=== PATIENT | male | born 1935 | race Caucasian/White ===

== ENCOUNTER 2016-06-30 07:59 | Day surgery (SDC) | payer MEDICARE, BC ==
[2016-06-29 08:37] VITALS: BMI 29.0
[~2016-06-30 07:59] MED LIST: DEXAMETHASONE SOD PHOSPHATE 10 MG/ML 1 ML VIAL IV ONE; HEPARIN SODIUM,PORCINE 5,000 UNIT/ML 1 ML VIAL SQ ONE; HYDROmorphone 1 MG/ML 1 ML SYRINGE IVP PRN; LACTATED RINGERS 1,000 ML IV SCH; ONDANSETRON 4 MG/2 ML VIAL IVP ONE; ceFAZolin 2 GM in SODIUM CHLORIDE 0.9% 100 ML IVPB ONE
[2016-06-30] MEDS ORDERED: LIDOCAINE 1% 20 ML VIAL (10MG/ML) FOR IV START INTRADERMA ONE (08:51)
--- NOTE | 2016-06-30 09:10 | P.GSHP ---
History of Present Illness H&P Date: 06/30/16 Chief Complaint: Recurrent right internal hernia This 80-year-old male who presents today for repair of recurrent right internal hernia. The patient developed a mass is right groin approximately 1 month ago. He states it happened after heavy lifting. Past Medical History Past Medical History: Cancer, Eye Disorder, Hearing Disorder / Deafness, Hyperlipidemia, Thyroid Disorder Additional Past Medical History / Comment(s): GLAUCOMA,PROSTATE CANCER History of Any Multi-Drug Resistant Organisms: None Reported Past Surgical History: Hernia Repair, Tonsillectomy Additional Past Surgical History / Comment(s): CYSTOSCOPY,LEFT WRIST Past Anesthesia/Blood Transfusion Reactions: No Reported Reaction Smoking Status: Former smoker Past Alcohol Use History: Rare Additional Past Alcohol Use History / Comment(s): quit smoking early Past Drug Use History: None Reported - Past Family History Mother Family Medical History: No Reported History Medications and Allergies Home Medications Medication Instructions Recorded Confirmed Type Ascorbic Acid [Vitamin C] 500 mg PO DAILY 12/20/14 06/29/16 History Atorvastatin [Lipitor] 40 mg PO HS 12/20/14 06/29/16 History Calcium Carbonate/Vitamin D3 2 each PO DAILY 12/20/14 06/29/16 History [Calcium 600 + Vit D Tablet] Cyanocobalamin [Vitamin B-12] 500 mcg PO DAILY 12/20/14 06/29/16 History Glucosamine HCl/Chondr Hoover A Na 1 each PO DAILY 12/20/14 06/29/16 History [Osteo Bi-Flex Caplet] Levothyroxine Sodium [Synthroid] 75 mcg PO DAILY 12/20/14 06/29/16 History Vitamin E (Dl,Tocopheryl Acet) 400 unit PO DAILY 12/20/14 06/29/16 History [Vitamin E] Bimatoprost [Lumigan .01% Ophth 1 drop BOTH EYES DAILY 06/29/16 06/29/16 History Soln] Brimocom 1 drop BOTH EYES BID 06/29/16 06/30/16 History Allergies Allergy/AdvReac Type Severity Reaction Status Date / Time No Known Allergies Allergy Verified 06/29/16 08:31 Surgical - Exam Vital Signs Temp Pulse Resp BP Pulse Ox 97.8 F 51 L 20 124/60 95 06/30/16 08:33 06/30/16 08:33 06/30/16 08:33 06/30/16 08:33 06/30/16 08:33 - General well developed, no distress - Eyes PERRL - ENT normal pinna - Neck no masses - Respiratory normal expansion - Cardiovascular Rhythm: regular - Abdomen Abdomen: soft, non tender Hernia: inguinal (Recurrent right inguinal hernia) Assessment and Plan Plan: Recurrent right inguinal hernia. We'll perform repair.
[2016-06-30] MEDS ORDERED: fentaNYL (PF) 50 MCG/ML 2 ML AMP ONE (09:37)
[2016-06-30] MEDS ORDERED: MIDAZOLAM 2 MG/2 ML VIAL ONE (09:37)
[2016-06-30] MEDS ORDERED: NEOSTIGMINE 1 MG/ML 10 ML VIAL ONE (09:37)
[2016-06-30] MEDS ORDERED: PROPOFOL 10 MG/ML 20 ML VIAL IV ONE (09:37)
[2016-06-30] MEDS ORDERED: SUCCINYLCHOLINE CHLORIDE 100 MG/5 ML SYR IV ONE (09:37)
[2016-06-30] MEDS ORDERED: LIDOCAINE 1% INJ 10MG/ML (20 ML MDV) ONE (09:37)
[2016-06-30] MEDS ORDERED: ROCURONIUM BROMIDE 10 MG/ML 10 ML VIAL IV ONE (09:37)
[2016-06-30] MEDS ORDERED: ePHEDrine 50 MG/ML 1 ML AMP ONE (09:37)
[2016-06-30] MEDS ORDERED: GLYCOPYRROLATE 0.2 MG/ML 2 ML VIAL ONE (09:37)
[2016-06-30] MEDS ORDERED: BUPIVACAIN-EPI 0.25%-1:200,000 30 ML VIAL SQ ONE (10:17)
--- NOTE | 2016-06-30 10:57 | P.OP ---
Date of Procedure: 06/30/16 Preoperative Diagnosis: Recurrent right inguinal hernia Postoperative Diagnosis: Recurrent right inguinal hernia Procedure(s) Performed: Laparoscopic robotic system repair of recurrent right inguinal hernia Anesthesia: HITESH Surgeon: Isaac Garcia Pathology: none sent Condition: stable Disposition: PACU Description of Procedure: The patient was placed the operative table in the supine position. He received general anesthesia. His abdomen was prepped and draped in the usual fashion. The patient had a previous incision scar at his right groin. The skin was anesthetized the trocar sites and then a skin incision was made in the infraumbilical area. The fascia was grasped with a Abraham clamp and then the Veress needles placed into the peritoneal cavity. Position of the Veress needle was confirmed with a positive drop test and then the abdomen insufflated. Next a 5 mm trochars placed. Cavity. The laparoscope was placed the pleural cavity. And then a 8 mm robotic trocar was placed in the right and left lateral position. The patient was then docked to the robot. The right inguinal canal was examined. There appeared to be new right direct hernia. At this point the peritoneum over the hernia was incised and cut. Using blunt dissection the hernia sac was dissected free. The Progrip mesh was then placed into the floor of the inguinal canal. The mesh was then unrolled and then the peritoneum was closed with 20 the lock suture. The patient was then undocked the robot. The needles were withdrawn. The fascia ohmmeter trocar site was closed with 0 Ethibond suture. Skin was closed interrupted 3-0 Monocryl suture. Dermabond dressings was applied. Patient top procedure well and sent to recovery in stable condition
[2016-06-30 11:11] VITALS: TEMP 96.9
[2016-06-30 13:04] VITALS: RESP 18
[2016-06-30 14:52] VITALS: BP 132/72; PULSE 60
== END 2016-06-30 14:15 | disposition home or self-care (01) ==
LOC: OR 07:59
PROVIDERS: ATTEND Surgery
DX: K40.91 Unilateral inguinal hernia, without obstruction or gangrene, recurrent (principal); E78.5 Hyperlipidemia, unspecified; E07.9 Disorder of thyroid, unspecified; H40.9 Unspecified glaucoma; Z79.899 Other long term (current) drug therapy; Z87.891 Personal history of nicotine dependence
CPT/HCPCS: 49651; C1781; J2250; J1644; J1100; J2710; J0690; J2405; J2001; J3010; J0330; J2704

== ENCOUNTER 2019-05-07 21:50 | Inpatient (IN) | payer MEDICARE, BC ==
[2019-05-07] MEDS ORDERED: DIPH,PERTUS(ACELL)TETVAC-LF 0.5 ML VIAL IM ONE (21:54)
[2019-05-07] MEDS ORDERED: SODIUM CHLORIDE 0.9% 500 ML 500 ML IV ONE (21:59)
--- NOTE | 2019-05-07 21:59 | ED ---
Trauma HPI - General Stated Complaint: Fall Time Seen by Provider: 05/07/19 21:54 Source: patient, EMS Mode of arrival: EMS Limitations: no limitations - History of Present Illness Initial Comments: Gio is an 83-year-old gentleman with extensive past medical history most significant for pulmonary embolisms for which she is on L Dank. Patient reports that he's been sick all day today not feeling well nausea, vomiting. He reports that this evening he stood up, became lightheaded and passed out. Patient fell forward, he was unconscious and did not recent sulfa the fall. He landed directly on his face. He woke up bleeding from his lip. called EMS. Upon their arrival patient was awake alert and oriented that someone sleepy and complaining of not feeling well. She denies any chest pain or palpitations or shortness of breath. Patient declined any pain meds prior to transfer to the emergency department however was given a dose of Toradol and Zofran in route. Patient has no history of pancreatitis. No history of gallstones. He is not an alcohol drinker. He is not on any diabetic medications. She denies any new medication the past 2 months. - Related Data Home Medications Medication Instructions Recorded Confirmed Ascorbic Acid [Vitamin C] 500 mg PO DAILY 12/20/14 05/07/19 Atorvastatin [Lipitor] 40 mg PO HS 12/20/14 05/07/19 Calcium Carbonate/Vitamin D3 2 tab PO DAILY 12/20/14 05/07/19 [Calcium 600 + Vit D Tablet] Glucosamine/Chondr Hoover A Sod [Osteo 2 tab PO DAILY 12/20/14 05/07/19 Bi-Flex Caplet] Levothyroxine Sodium [Synthroid] 75 mcg PO DAILY 12/20/14 05/07/19 Apixaban [Eliquis] 5 mg PO BID 05/07/19 05/07/19 Bimatoprost [Lumigan .01% Ophth 1 drop BOTH EYES BID 05/07/19 05/07/19 Soln] Dorzolamide 2% [Trusopt 2%] 1 drops BOTH EYES BID 05/07/19 05/07/19 Krill Oil 500 mg PO DAILY 05/07/19 05/07/19 Latanoprost [Xalatan 0.005%] 1 drop BOTH EYES HS 05/07/19 05/07/19 Timolol [Betimol 0.5% Ophth Soln] 1 drop BOTH EYES BID 05/07/19 05/07/19 Vit A/Vit C/Vit E/Zinc/Copper 1 cap PO DAILY 05/07/19 05/07/19 [Vision Formula Softgel] Vitamin B Complex 1 cap PO DAILY 05/07/19 05/07/19 Allergies Allergy/AdvReac Type Severity Reaction Status Date / Time No Known Allergies Allergy Verified 05/07/19 22:39 Review of Systems ROS Statement: Those systems with pertinent positive or pertinent negative responses have been documented in the HPI. ROS Other: All systems not noted in ROS Statement are negative. Past Medical History Past Medical History: Cancer, Eye Disorder, Hearing Disorder / Deafness, Hyperlipidemia, Thyroid Disorder Additional Past Medical History / Comment(s): GLAUCOMA,PROSTATE CANCER History of Any Multi-Drug Resistant Organisms: None Reported Past Surgical History: Hernia Repair, Tonsillectomy Additional Past Surgical History / Comment(s): CYSTOSCOPY,LEFT WRIST Past Anesthesia/Blood Transfusion Reactions: No Reported Reaction Smoking Status: Former smoker Past Alcohol Use History: Rare Additional Past Alcohol Use History / Comment(s): quit smoking early Past Drug Use History: None Reported - Past Family History Mother Family Medical History: No Reported History General Exam - General Exam Comments Initial Comments: Physical Exam GENERAL: Patient is well-developed and well-nourished. HENT: Contusion of forehead Laceration of lower lip - through and through with bleeding controlled Laceration under the chin approximately 2 cm in length. EYES: Left pupil 3mm non-reactive Right pupil 3mm and reactve PULMONARY: Unlabored respirations. No audible rales rhonchi or wheezing was noted. CARDIOVASCULAR: RRR ABDOMEN: Soft and nontender with normal bowel sounds. SKIN: Skin is dry, pale Skin tear to left index finger over the PIP joint : Deferred NEUROLOGIC: Patient is alert and oriented x3. Moving all extremities spontaneously MUSCULOSKELETAL: Normal extremities with adequate strength and full range of motion. No lower ex tremity swelling or edema. No calf tenderness. PSYCHIATRIC: Normal psychiatric evaluation. Limitations: no limitations Course Vital Signs 05/07/19 21:53 Pulse Rate 96 Respiratory 20 Rate Blood Pressure 149/83 O2 Sat by Pulse 100 Oximetry Procedures - Laceration Laceration #1 Consent Obtained: verbal consent Indication: laceration Site: face Size (cm): 2 Description: irregular Depth: simple, single layer Anesthetic Used: lidocaine 1%, with epi Anesthesia Technique: local infiltration Pre-repair: wound explored, deep structures intact Type of Sutures: nylon Size of Sutures: 4-0 Number of Sutures: 3 Technique: simple, interrupted Patient Tolerated Procedure: well, no complications Laceration #2 Consent Obtained: verbal consent Indication: laceration Site: hand Size (cm): 3 Description: flap, irregular Depth: simple, single layer Pre-repair: wound explored Type of Sutures: other (Glue) Patient Tolerated Procedure: well, no complications Medical Decision Making - Medical Decision Making LEVEL 2 TRAUMA ACTIVATION - LOC, FALL, HEAD TRAUMA, ON ANTICOAGULANT Patient was seen and evaluated immediately upon arrival in the emergency department. ABCs are intact, secondary survey reveals head trauma, bruising about the right eye as well as bleeding from the lip. Oropharynx is intact there is no broken t eeth no airway obstruction. Labs and imaging were ordered Imaging revealed no acute traumatic injuries Labs did reveal acute pancreatitis with no elevated transaminitis, a CT of the abdomen was then obtained An additional IV fluids pain management ordered CT with no signs of pancreatic inflammation, no cysts or masses, no common bile dilatation or abnormality of the gallbladder Patient care was discussed with Dr. Adams who agrees the patient is medically cleared from a trauma standpoint and can be admitted to medicine for acute pancreatitis with dehydration and syncopal episode. Patient care was discussed patient's primary care physician Dr. Jj who agrees with plan for admission for acute pancreatitis of unknown etiology, dehydration, syncopal episode Patinet were updated and agreement with plan - Lab Data Result diagrams: 05/07/19 21:53 05/07/19 21:53 Lab Results 05/07/19 05/07/19 05/07/19 Range/Units 21:53 21:53 21:53 WBC 14.7 H (3.8-10.6) k/uL RBC 4.91 (4.30-5.90) m/uL Hgb 14.6 (13.0-17.5) gm/dL Hct 43.2 (39.0-53.0) % MCV 88.0 (80.0-100.0) fL MCH 29.6 (25.0-35.0) pg MCHC 33.7 (31.0-37.0) g/dL RDW 12.8 (11.5-15.5) % Plt Count 271 (150-450) k/uL Neutrophils % 84 % Lymphocytes % 13 % Monocytes % 2 % Eosinophils % 0 % Basophils % 0 % Neutrophils # 12.4 H (1.3-7.7) k/uL Lymphocytes # 1.9 (1.0-4.8) k/uL Monocytes # 0.3 (0-1.0) k/uL Eosinophils # 0.0 (0-0.7) k/uL Basophils # 0.0 (0-0.2) k/uL PT (9.0-12.0) sec INR (<1.2) APTT (22.0-30.0) sec Sodium 140 (137-145) mmol/L Potassium 4.5 (3.5-5.1) mmol/L Chloride 105 (98-107) mmol/L Carbon Dioxide 25 (22-30) mmol/L Anion Gap 10 mmol/L BUN 23 H (9-20) mg/dL Creatinine 0.89 (0.66-1.25) mg/dL Est GFR (CKD-EPI)AfAm >90 (>60 ml/min/1.73 sqM) Est GFR (CKD-EPI)NonAf 79 (>60 ml/min/1.73 sqM) Glucose 170 H (74-99) mg/dL POC Glucose (mg/dL) (75-99) mg/dL POC Glu Operator Receptionist ID Lactic Ac Sepsis Rflx Plasma Lactic Acid Waqas (0.7-2.0) mmol/L Calcium 9.9 (8.4-10.2) mg/dL Total Bilirubin 1.2 (0.2-1.3) mg/dL AST 37 (17-59) U/L ALT 42 (21-72) U/L Alkaline Phosphatase 56 (38-126) U/L Total Creatine Kinase 93 (55-170) U/L CK-MB (CK-2) 1.6 (0.0-2.4) ng/mL CK-MB (CK-2) Rel Index 1.7 Troponin I <0.012 (0.000-0.034) ng/mL Total Protein 6.9 (6.3-8.2) g/dL Albumin 4.5 (3.5-5.0) g/dL Amylase 4453 H* (30-110) U/L Lipase >66186 H (23-300) U/L Urine Color Urine Appearance (Clear) Urine pH (5.0-8.0) Ur Specific [place] (1.001-1.035) Urine Protein (Negative) Urine Glucose (UA) (Negative) Urine Ketones (Negative) Urine Blood (Negative) Urine Nitrite (Negative) Urine Bilirubin (Negative) Urine Urobilinogen (<2.0) mg/dL Ur Leukocyte Esterase (Negative) Urine Opiates Screen (NotDetected) Ur Oxycodone Screen (NotDetected) Urine Methadone Screen (NotDetected) Ur Propoxyphene Screen (NotDetected) Ur Barbiturates Screen (NotDetected) U Tricyclic Antidepress (NotDetected) Ur Phencyclidine Scrn (NotDetected) Ur Amphetamines Screen (NotDetected) U Methamphetamines Scrn (NotDetected) U Benzodiazepines Scrn (NotDetected) Urine Cocaine Screen (NotDetected) U Marijuana (THC) Screen (NotDetected) Serum Alcohol <10 mg/dL Blood Type Blood Type Confirm Blood Type Recheck Bld Type Recheck Status Antibody Screen Spec Expiration Date 05/07/19 05/07/19 05/07/19 Range/Units 21:53 21:53 21:56 WBC (3.8-10.6) k/uL RBC (4.30-5.90) m/uL Hgb (13.0-17.5) gm/dL Hct (39.0-53.0) % MCV (80.0-100.0) fL MCH (25.0-35.0) pg MCHC (31.0-37.0) g/dL RDW (11.5-15.5) % Plt Count (150-450) k/uL Neutrophils % % Lymphocytes % % Monocytes % % Eosinophils % % Basophils % % Neutrophils # (1.3-7.7) k/uL Lymphocytes # (1.0-4.8) k/uL Monocytes # (0-1.0) k/uL Eosinophils # (0-0.7) k/uL Basophils # (0-0.2) k/uL PT (9.0-12.0) sec INR (<1.2) APTT (22.0-30.0) sec Sodium (137-145) mmol/L Potassium (3.5-5.1) mmol/L Chloride (98-107) mmol/L Carbon Dioxide (22-30) mmol/L Anion Gap mmol/L BUN (9-20) mg/dL Creatinine (0.66-1.25) mg/dL Est GFR (CKD-EPI)AfAm (>60 ml/min/1.73 sqM) Est GFR (CKD-EPI)NonAf (>60 ml/min/1.73 sqM) Glucose (74-99) mg/dL POC Glucose (mg/dL) (75-99) mg/dL POC Glu Operator Receptionist ID Lactic Ac Sepsis Rflx Plasma Lactic Acid Waqas 2.3 H* (0.7-2.0) mmol/L Calcium (8.4-10.2) mg/dL Total Bilirubin (0.2-1.3) mg/dL AST (17-59) U/L ALT (21-72) U/L Alkaline Phosphatase (38-126) U/L Total Creatine Kinase (55-170) U/L CK-MB (CK-2) (0.0-2.4) ng/mL CK-MB (CK-2) Rel Index Troponin I (0.000-0.034) ng/mL Total Protein (6.3-8.2) g/dL Albumin (3.5-5.0) g/dL Amylase (30-110) U/L Lipase (23-300) U/L Urine Color Urine Appearance (Clear) Urine pH (5.0-8.0) Ur Specific [place] (1.001-1.035) Urine Protein (Negative) Urine Glucose (UA) (Negative) Urine Ketones (Negative) Urine Blood (Negative) Urine Nitrite (Negative) Urine Bilirubin (Negative) Urine Urobilinogen (<2.0) mg/dL Ur Leukocyte Esterase (Negative) Urine Opiates Screen (NotDetected) Ur Oxycodone Screen (NotDetected) Urine Methadone Screen (NotDetected) Ur Propoxyphene Screen (NotDetected) Ur Barbiturates Screen (NotDetected) U Tricyclic Antidepress (NotDetected) Ur Phencyclidine Scrn (NotDetected) Ur Amphetamines Screen (NotDetected) U Methamphetamines Scrn (NotDetected) U Benzodiazepines Scrn (NotDetected) Urine Cocaine Screen (NotDetected) U Marijuana (THC) Screen (NotDetected) Serum Alcohol mg/dL Blood Type O Positive Blood Type Confirm O Positive Blood Type Recheck No Previous Record Bld Type Recheck Status CABO Indicated Antibody Screen NEGATIVE Spec Expiration Date 05/10/2019 - 235205/07/19 05/07/19 05/07/19 Range/Units 22:01 22:30 22:36 WBC (3.8-10.6) k/uL RBC (4.30-5.90) m/uL Hgb (13.0-17.5) gm/dL Hct (39.0-53.0) % MCV (80.0-100.0) fL MCH (25.0-35.0) pg MCHC (31.0-37.0) g/dL RDW (11.5-15.5) % Plt Count (150-450) k/uL Neutrophils % % Lymphocytes % % Monocytes % % Eosinophils % % Basophils % % Neutrophils # (1.3-7.7) k/uL Lymphocytes # (1.0-4.8) k/uL Monocytes # (0-1.0) k/uL Eosinophils # (0-0.7) k/uL Basophils # (0-0.2) k/uL PT 11.0 (9.0-12.0) sec INR 1.0 (<1.2) APTT 26.1 (22.0-30.0) sec Sodium (137-145) mmol/L Potassium (3.5-5.1) mmol/L Chloride (98-107) mmol/L Carbon Dioxide (22-30) mmol/L Anion Gap mmol/L BUN (9-20) mg/dL Creatinine (0.66-1.25) mg/dL Est GFR (CKD-EPI)AfAm (>60 ml/min/1.73 sqM) Est GFR (CKD-EPI)NonAf (>60 ml/min/1.73 sqM) Glucose (74-99) mg/dL POC Glucose (mg/dL) 177 H (75-99) mg/dL POC Glu Operator Receptionist ID Steve Sewell Lactic Ac Sepsis Rflx Y Plasma Lactic Acid Waqas (0.7-2.0) mmol/L Calcium (8.4-10.2) mg/dL Total Bilirubin (0.2-1.3) mg/dL AST (17-59) U/L ALT (21-72) U/L Alkaline Phosphatase (38-126) U/L Total Creatine Kinase (55-170) U/L CK-MB (CK-2) (0.0-2.4) ng/mL CK-MB (CK-2) Rel Index Troponin I (0.000-0.034) ng/mL Total Protein (6.3-8.2) g/dL Albumin (3.5-5.0) g/dL Amylase (30-110) U/L Lipase (23-300) U/L Urine Color Urine Appearance (Clear) Urine pH (5.0-8.0) Ur Specific [place] (1.001-1.035) Urine Protein (Negative) Urine Glucose (UA) (Negative) Urine Ketones (Negative) Urine Blood (Negative) Urine Nitrite (Negative) Urine Bilirubin (Negative) Urine Urobilinogen (<2.0) mg/dL Ur Leukocyte Esterase (Negative) Urine Opiates Screen (NotDetected) Ur Oxycodone Screen (NotDetected) Urine Methadone Screen (NotDetected) Ur Propoxyphene Screen (NotDetected) Ur Barbiturates Screen (NotDetected) U Tricyclic Antidepress (NotDetected) Ur Phencyclidine Scrn (NotDetected) Ur Amphetamines Screen (NotDetected) U Methamphetamines Scrn (NotDetected) U Benzodiazepines Scrn (NotDetected) Urine Cocaine Screen (NotDetected) U Marijuana (THC) Screen (NotDetected) Serum Alcohol mg/dL Blood Type Blood Type Confirm Blood Type Recheck Bld Type Recheck Status Antibody Screen Spec Expiration Date 05/07/19 Range/Units 22:40 WBC (3.8-10.6) k/uL RBC (4.30-5.90) m/uL Hgb (13.0-17.5) gm/dL Hct (39.0-53.0) % MCV (80.0-100.0) fL MCH (25.0-35.0) pg MCHC (31.0-37.0) g/dL RDW (11.5-15.5) % Plt Count (150-450) k/uL Neutrophils % % Lymphocytes % % Monocytes % % Eosinophils % % Basophils % % Neutrophils # (1.3-7.7) k/uL Lymphocytes # (1.0-4.8) k/uL Monocytes # (0-1.0) k/uL Eosinophils # (0-0.7) k/uL Basophils # (0-0.2) k/uL PT (9.0-12.0) sec INR (<1.2) APTT (22.0-30.0) sec Sodium (137-145) mmol/L Potassium (3.5-5.1) mmol/L Chloride (98-107) mmol/L Carbon Dioxide (22-30) mmol/L Anion Gap mmol/L BUN (9-20) mg/dL Creatinine (0.66-1.25) mg/dL Est GFR (CKD-EPI)AfAm (>60 ml/min/1.73 sqM) Est GFR (CKD-EPI)NonAf (>60 ml/min/1.73 sqM) Glucose (74-99) mg/dL POC Glucose (mg/dL) (75-99) mg/dL POC Glu Operator Receptionist ID Lactic Ac Sepsis Rflx Plasma Lactic Acid Waqas (0.7-2.0) mmol/L Calcium (8.4-10.2) mg/dL Total Bilirubin (0.2-1.3) mg/dL AST (17-59) U/L ALT (21-72) U/L Alkaline Phosphatase (38-126) U/L Total Creatine Kinase (55-170) U/L CK-MB (CK-2) (0.0-2.4) ng/mL CK-MB (CK-2) Rel Index Troponin I (0.000-0.034) ng/mL Total Protein (6.3-8.2) g/dL Albumin (3.5-5.0) g/dL Amylase (30-110) U/L Lipase (23-300) U/L Urine Color Yellow Urine Appearance Clear (Clear) Urine pH 6.5 (5.0-8.0) Ur Specific [place] 1.019 (1.001-1.035) Urine Protein Trace H (Negative) Urine Glucose (UA) Negative (Negative) Urine Ketones Negative (Negative) Urine Blood Negative (Negative) Urine Nitrite Negative (Negative) Urine Bilirubin Negative (Negative) Urine Urobilinogen <2.0 (<2.0) mg/dL Ur Leukocyte Esterase Negative (Negative) Urine Opiates Screen Not Detected (NotDetected) Ur Oxycodone Screen Not Detected (NotDetected) Urine Methadone Screen Not Detected (NotDetected) Ur Propoxyphene Screen Not Detected (NotDetected) Ur Barbiturates Screen Not Detected (NotDetected) U Tricyclic Antidepress Not Detected (NotDetected) Ur Phencyclidine Scrn Not Detected (NotDetected) Ur Amphetamines Screen Not Detected (NotDetected) U Methamphetamines Scrn Not Detected (NotDetected) U Benzodiazepines Scrn Not Detected (NotDetected) Urine Cocaine Screen Not Detected (NotDetected) U Marijuana (THC) Screen Not Detected (NotDetected) Serum Alcohol mg/dL Blood Type Blood Type Confirm Blood Type Recheck Bld Type Recheck Status Antibody Screen Spec Expiration Date Disposition Clinical Impression: Syncope due to orthostatic hypotension, Dehydration, Pancreatitis Disposition: ADMITTED IP TO THIS [facility] Condition: Serious
[2019-05-07 22:04] LABS: Glucose,Whole Blood 177 mg/dL (75-99)
[2019-05-07 22:12] LABS: Basophils % (A) 0 %; Eosinophils % (A) 0 %; HCT 43.2 % (39.0-53.0); HGB 14.6 gm/dL (13.0-17.5); Lymphocytes # (A) 1.9 k/uL (1.0-4.8); Lymphocytes % (A) 13 %; MCH 29.6 pg (25.0-35.0); MCHC 33.7 g/dL (31.0-37.0); Mean Platelet Volume 6.9; Monocytes # (A) 0.3 k/uL (0-1.0); Monocytes % (A) 2 %; Neutrophils # (A) 12.4 k/uL (1.3-7.7); Neutrophils % (A) 84 %; Platelet Count 271 k/uL (150-450); RBC 4.91 m/uL (4.30-5.90); RDW 12.8 % (11.5-15.5); WBC 14.7 k/uL (3.8-10.6)
--- NOTE | 2019-05-07 22:18 | XR ---
EXAMINATION TYPE: XR chest 1V portable DATE OF EXAM: 05/07/2019 COMPARISON: NONE HISTORY: Syncope TECHNIQUE: Single frontal view of the chest is obtained. FINDINGS: There is some mild atelectasis at the lung bases. There is no heart failure. Heart size is normal. There are chest leads. IMPRESSION: Mild basilar pulmonary atelectasis. There is possible minimal airspace infiltrate also.
--- NOTE | 2019-05-07 22:20 | XR ---
EXAMINATION TYPE: XR pelvis AP view DATE OF EXAM: 05/07/2019 COMPARISON: NONE HISTORY: Fall. Pain TECHNIQUE: Single view FINDINGS: Pelvic ring is intact. Proximal femurs and hip joints are intact. Sacroiliac joints appear normal. IMPRESSION: Normal pelvis
--- NOTE | 2019-05-07 22:20 | XR ---
EXAMINATION TYPE: XR hand limited LT DATE OF EXAM: 05/07/2019 COMPARISON: NONE HISTORY: Hand pain TECHNIQUE: 2 views FINDINGS: There is a plate fixing an old fracture of the distal radius. Metacarpals are intact. There is narrowing of the IP joint spaces. I see no fracture nor dislocation. There is narrowing of the ra diocarpal joint space. IMPRESSION: No acute abnormality of the left hand. Osteoarthritic joint space narrowing.
[2019-05-07 22:25] LABS: ALT 42 U/L (21-72); AST 37 U/L (17-59); African American GFR (CKD) >90 (>60 ml/min/1.73 sqM); Albumin 4.5 g/dL (3.5-5.0); Alcohol <10 mg/dL; Alkaline Phosphatase 56 U/L (38-126); Anion Gap 10 mmol/L; Blood Urea Nitrogen 23 mg/dL (9-20); Calcium 9.9 mg/dL (8.4-10.2); Carbon Dioxide 25 mmol/L (22-30); Chloride 105 mmol/L (98-107); Glucose 170 mg/dL (74-99); Non-African American GFR(CKD) 79 (>60 ml/min/1.73 sqM); Potassium 4.5 mmol/L (3.5-5.1); Sodium 140 mmol/L (137-145); Total Bilirubin 1.2 mg/dL (0.2-1.3); Total Protein 6.9 g/dL (6.3-8.2)
[2019-05-07] MEDS ORDERED: diphenhydrAMINE 50 MG/ML 1 ML VIAL IVP STA (22:33)
[2019-05-07] MEDS ORDERED: METOCLOPRAMIDE 5 MG/ML 2 ML VIAL IVP STA (22:33)
--- NOTE | 2019-05-07 22:34 | CT ---
EXAMINATION TYPE: CT brain arely cohen DATE OF EXAM: 05/07/2019 COMPARISON: None HISTORY: fall. head trauma. CT DLP: 1368.3 mGycm Automated exposure control for dose reduction was used. There is cerebral cortical atrophy. There is patchy hypodensity in the periventricular white matter. There is no mass effect nor midline shift. There is no sign of intracranial hemorrhage. Calvarium is intact. There is some left maxillary and ethmoid sinus mucosal thickening. Cervical vertebra have normal alignment. There is degenerative disc space narrowing throughout the ce rvical spine and more severe at C5-6. There is no compression fracture. Posterior elements are intact . Skull base is intact. IMPRESSION: Cerebral atrophy and chronic small vessel ischemia. No acute intracranial abnormality. Spondylotic changes in the cervical spine. No fracture seen.
[2019-05-07 22:48] LABS: Partial Thromboplastin Time 26.1 sec (22.0-30.0)
[2019-05-07 22:53] LABS: Creatine Kinase 93 U/L (55-170)
[2019-05-07 23:06] LABS: Creatine Kinase MB 1.6 ng/mL (0.0-2.4); Troponin I <0.012 ng/mL (0.000-0.034)
[2019-05-07] MEDS ORDERED: ONDANSETRON 4 MG/2 ML VIAL IVP STA (23:09)
[2019-05-07] MEDS ORDERED: MORPHINE SULFATE 4 MG/ML SYRINGE IVP STA (23:10)
[2019-05-07 23:12] LABS: Appearance,Urine Clear (Clear); Bilirubin,Urine Negative (Negative); Blood,Urine Negative (Negative); Color,Urine Yellow; Glucose,Urine (UA) Negative (Negative); Ketones,Urine Negative (Negative); Leukocyte Esterase,Urine Negative (Negative); Nitrite,Urine Negative (Negative); PH, Urine 6.5 (5.0-8.0); Protein,Urine Trace (Negative); Specific Gravity,Urine 1.019 (1.001-1.035); Urobilinogen,Urine <2.0 mg/dL (<2.0)
[2019-05-07] MEDS: SODIUM CHLORIDE 0.9% 1,000 ML IV SCH (23:15)
[2019-05-07 23:22] LABS: Amphetamine Screen,Urine Not Detected (NotDetected); Barbiturate Screen,Urine Not Detected (NotDetected); Benzodiazepines Screen,Urine Not Detected (NotDetected); Cocaine Screen,Urine Not Detected (NotDetected); Methadone Screen, Urine Not Detected (NotDetected); Opiate Screen,Urine Not Detected (NotDetected); Oxycodone Screen, Urine Not Detected (NotDetected); Phencyclidine Screen,Urine Not Detected (NotDetected); Tricyclic Antidepressant,Urine Not Detected (NotDetected); Urn Cannabinoid Scrn Not Detected (NotDetected)
[2019-05-07] MEDS ORDERED: SODIUM CHLORIDE 0.9% 2,000 ML IV ONE (23:39)
[2019-05-08] MEDS ORDERED: LIDOCAINE 1%-EPI 1:100,000 20 ML VIAL SQ STA (00:01)
[2019-05-08] MEDS ORDERED: TOPICAL SKIN ADHESIVE 1 EACH AMP TOPICAL ONE (00:01)
--- NOTE | 2019-05-08 00:22 | CT ---
EXAMINATION TYPE: CT abdomen pelvis w con DATE OF EXAM: 05/07/2019 COMPARISON: None HISTORY: fall, r/o pancreatitis CT DLP: 928.70 mGycm Automated exposure control for dose reduction was used. CONTRAST: Performed with IV Contrast, patient injected with 100 mL of Isovue 300. There is some patchy atelectasis at the lung bases. Heart is enlarged. There is no pericardial effusi on. There is small hiatal hernia. Liver spleen appear normal. Bile ducts are not dilated. Gallbladder appears normal. Stomach has normal size. There is small amount of fluid in the left side anterior pa rarenal space that measures up to 1.5 cm in thickness. This is adjacent to the tail of the pancreas. I do not see any significant edema of the pancreas however. There is no adrenal mass. Kidneys show satisfactory contrast opacification. There is no hydronephrosi s. There are small bilateral renal parapelvic cysts. Ureters are not dilated. There is no retroperito leena adenopathy. Abdominal aorta is atheromatous. There is no ascites. There are prostate implants no ashley. Bladder distends smoothly. There is no inguinal hernia. There are a few right-sided small inguin al lymph nodes. There is no evidence of a bowel obstruction. There is no free air. There is no ascites. There is mild lumbar levoscoliosis. There are spondylotic changes in the lumbar spine. There is no compression fra cture. Bony pelvis appears intact. IMPRESSION: There is minimal fluid in the left side anterior pararenal space that could relate to mild pancreatit is. No significant edema seen within the pancreas. Atherosclerotic vascular disease. Spondylotic changes in the lumbar spine. There are a few sigmoid di verticula without diverticulitis. Appendix not definitely seen. No sign of appendicitis.
[2019-05-08] MEDS ORDERED: NALOXONE 0.4 MG/ML 1 ML VIAL IV PRN (01:15)
[2019-05-08] MEDS ORDERED: HYDROmorphone 1 MG/ML 1 ML SYRINGE IVP PRN (01:15)
[2019-05-08] MEDS: SODIUM CHLORIDE 0.9% 1,000 ML IV SCH ×4 (02:23→19:40)
[2019-05-08] MEDS: ONDANSETRON 4 MG/2 ML VIAL IVP PRN (06:24)
[2019-05-08 07:27] LABS: Amylase 3988 U/L (30-110)
[2019-05-08 10:36] LABS: Basophils % (A) 0 %; Eosinophils % (A) 0 %; HCT 35.8 % (39.0-53.0); HGB 12.7 gm/dL (13.0-17.5); Lymphocytes # (A) 1.6 k/uL (1.0-4.8); Lymphocytes % (A) 12 %; MCHC 35.4 g/dL (31.0-37.0); MCV 87.6 fL (80.0-100.0); Mean Platelet Volume 6.3; Monocytes # (A) 0.7 k/uL (0-1.0); Monocytes % (A) 5 %; Neutrophils % (A) 81 %; Platelet Count 225 k/uL (150-450); RBC 4.08 m/uL (4.30-5.90); RDW 13.1 % (11.5-15.5); WBC 13.6 k/uL (3.8-10.6)
[2019-05-08 10:56] LABS: Albumin 3.2 g/dL (3.5-5.0); Calcium 8.7 mg/dL (8.4-10.2); Potassium 3.9 mmol/L (3.5-5.1); Total Protein 5.5 g/dL (6.3-8.2)
[2019-05-08] MEDS: PANTOPRAZOLE 40 MG/10 ML VIAL IV SCH (12:25)
--- NOTE | 2019-05-08 12:54 | US ---
EXAMINATION TYPE: US abdomen limited DATE OF EXAM: 05/08/2019 COMPARISON: NONE CLINICAL HISTORY: 83-year-old male pancreatitis, eval gallbladder. TECHNIQUE: Multiple sonographic images of the right upper quadrant are obtained. FINDINGS: EXAM MEASUREMENTS: Liver Length: 16.2 cm Gallbladder Wall: 0.3 cm CBD: 0.3 cm Right Kidney: 8.8 x 4.5 x 4.4 cm POULTRY INSEMINATOR NOTES: Technical limitations due to large amount of overlying bowel content Pancreas: Obscured by bowel gas Liver: only visualized intercostally there are no focal lesions seen. Gallbladder: limited evaluation. Gallbladder is borderline distended. No wall thickening, surroundin g fluid, or shadowing calculi. Some faint internal echoes are present and could represent some sludge . Evidence for sonographic Sellers's sign: no CBD: limited evaluation visualized portion is normal caliber. Right Kidney: no evidence of hydronephrosis IMPRESSION: 1. Technically limited exam. 2. Borderline distended gallbladder and faint internal echoes likely representing sludge. No abnormal wall thickening or shadowing calculi. No diagnostic evidence of acute cholecystitis at this time. Fo llow-up ultrasound or HIDA scan if indicated. 3. No biliary ductal dilatation. 4. Pancreas could not be visualized.
--- NOTE | 2019-05-08 13:46 | P.HPIM ---
History of Present Illness H&P Date: 05/08/19 Chief Complaint: Dizziness, nausea, syncope This is an 83-year-old male patient of Dr. Jj with past medical history pulmonary embolism on eliquis, prostate cancer, hypothyroidism, glaucoma, hyperlipidemia. Patient states that he was feeling dizzy with nausea and collapsing on 2 separate occasions completely passed out and hit his lip one time and then his chin on the second time causing abrasions, lacerations. He denies having any abdominal pain that he noticed at the time. He denies any diarrhea. His heard him and she called 911. Patient denies any previous history of pancreatitis. He denies having gallstones. He has not had a cholecystectomy. He denies any alcohol use. He denies any [id number] or herbal medications usage. Patient came into [facility] emergency center for evaluation. Initial blood pressure 149/83, heart rate 96, pulse ox 100%. WBC 14.7, hemoglobin 14.6, electrolytes within normal limits, creatinine 0.89, blood sugar 170. Liver function tests within normal limits, troponin negative, lipase 20,000, amylase 4453, alcohol level less than 10. Lactic acid 2.3 and patient was status post 2 and half liters of IV fluid. CAT scan of the brain showed no urine drug screen negative, urinalysis negative. Patient had suture repair done on 2 lacerations on his face and one on his hand and tetanus status was updated. CAT scan of the brain revealed cerebral atrophy and chronic small vessel ischemia. No acute intracranial abnormality. CAT scan of the cervical spine reveals spondylotic changes in the cervical spine. No fracture seen. Pelvic x-ray was normal. Chest x-ray showed mild basilar pulmonary atelectasis. Possible minimal airspace infiltrate. CAT scan of the abdomen and pelvis with contrast revealed minimal fluid in the left anterior pararenal space it could relate to mild pancreatitis. No significant edema seen within the pancreas. Atherosclerotic vascular disease. Spondylotic changes of the lumbar spine. Few sigmoid diverticula without diverticulitis. Appendix not actively seen but no signs of appendicitis. Patient was admitted to the cardiac stepdown unit and consult requested with general surgeon. Abdominal ultrasound revealed a limited exam. Borderline distended gallbladder and faint internal echoes likely representing sludge. No abnormal wall thickening or shadowing calculi. No evidence of acute cholecystitis. No biliary ductal rotation. Pancreas could not be visualized. Repeat amylase 1614, repeat lipase 5721. Review of Systems Constitutional: Reports fatigue, Denies anorexia, Denies chills, Denies fever, Denies lethargy, Denies malaise, Denies poor appetite Eyes: denies blurred vision, denies pain Ears, nose, mouth and throat: Reports vertigo, Denies dysphagia, Denies nasal congestion, Denies nasal discharge Cardiovascular: Reports lightheadedness, Reports syncope, Denies decreased exercise tolerance, Denies dyspnea on exertion, Denies shortness of breath Respiratory: Denies cough, Denies cough with sputum, Denies dyspnea, Denies excessive sputum, Denies hemoptysis, Denies home oxygen, Denies respiratory infections, Denies wheezing Gastrointestinal: Reports abdominal pain, Reports nausea, Denies diarrhea, Denies vomiting Genitourinary: Denies dysuria, Denies urinary retention Musculoskeletal: Reports muscle weakness, Denies frequent falls, Denies gait dysfunction, Denies myalgias Integumentary: Reports wounds, Denies pruritus, Denies rash Neurological: Denies change in mentation, Denies change in speech, Denies numbness, Denies seizures, Denies weakness Psychiatric: Denies anxiety, Denies depression Endocrine: Denies fatigue, Denies weight change Past Medical History Past Medical History: Cancer, Eye Disorder, Hearing Disorder / Deafness, Hyperlipidemia, Thyroid Disorder Additional Past Medical History / Comment(s): GLAUCOMA,PROSTATE CANCER History of Any Multi-Drug Resistant Organisms: None Reported Past Surgical History: Hernia Repair, Tonsillectomy Additional Past Surgical History / Comment(s): CYSTOSCOPY,LEFT WRIST Past Anesthesia/Blood Transfusion Reactions: No Reported Reaction Smoking Status: Never smoker Past Alcohol Use History: Rare Additional Past Alcohol Use History / Comment(s): Patient is a lifelong nonsmoker, no illicit drug use, no alcohol abuse. Patient was at home with his . Past Drug Use History: None Reported - Past Family History Mother Family Medical History: No Reported History Additional Family Medical History / Comment(s): Mother at age 69 from hernia, and location. Father Additional Family Medical History / Comment(s): Father at age 89 from pneumonia. Sister(s) Additional Family Medical History / Comment(s): Patient has 2 sisters that have passed and 1 from unknown cause, second one from alcohol abuse. Patient does not have any brothers. Patient has 2 children with no major medical problems. Medications and Allergies Home Medications Medication Instructions Recorded Confirmed Type Ascorbic Acid [Vitamin C] 500 mg PO DAILY 12/20/14 05/07/19 History Atorvastatin [Lipitor] 40 mg PO HS 12/20/14 05/07/19 History Calcium Carbonate/Vitamin D3 2 tab PO DAILY 12/20/14 05/07/19 History [Calcium 600 + Vit D Tablet] Glucosamine/Chondr Hoover A Sod [Osteo 2 tab PO DAILY 12/20/14 05/07/19 History Bi-Flex Caplet] Levothyroxine Sodium [Synthroid] 75 mcg PO DAILY 12/20/14 05/07/19 History Apixaban [Eliquis] 5 mg PO BID 05/07/19 05/07/19 History Dorzolamide 2% [Trusopt 2%] 1 drops BOTH EYES BID 05/07/19 05/07/19 History Krill Oil 500 mg PO DAILY 05/07/19 05/07/19 History Latanoprost [Xalatan 0.005%] 1 drop BOTH EYES HS 05/07/19 05/07/19 History Timolol [Betimol 0.5% Ophth Soln] 1 drop BOTH EYES BID 05/07/19 05/07/19 History Vit A/Vit C/Vit E/Zinc/Copper 1 cap PO DAILY 05/07/19 05/07/19 History [Vision Formula Softgel] Vitamin B Complex 1 cap PO DAILY 05/07/19 05/07/19 History Allergies Allergy/AdvReac Type Severity Reaction Status Date / Time No Known Allergies Allergy Verified 05/07/19 22:39 Physical Exam Vitals: Vital Signs Temp Pulse Pulse Resp BP BP Pulse Ox 05/08/19 08:00 98.7 F 78 16 106/57 91 L 05/08/19 04:00 98.2 F 98 16 110/58 92 L 05/08/19 03:47 100 18 05/08/19 02:06 98.6 F 100 18 132/65 91 L 05/08/19 02:05 100 18 05/07/19 21:53 96 20 149/83 100 Intake and Output 05/07/19 05/08/19 05/08/19 22:59 06:59 14:59 Intake Total 1000 0 Balance 1000 0 Intake: Intake, IV Titration 1000 Amount Sodium Chloride 0.9% 1, 1000 000 ml @ 200 mls/hr IV . Q5H [facility] Rx#:[id number] Oral 0 Other: Voiding Method Urinal Urinal Weight 77.111 kg 80.5 kg Gen: This is an 83-year-old male. Patient is in bed and appears to be comfortable and in no acute distress. HEENT: Head is atraumatic, normocephalic. Pupils equal, round. Sclerae is anicteric. NECK: Supple. No JVD. No lymphadenopathy. No thyromegaly. LUNGS: Clear to auscultation. No wheezes or rhonchi. No intercostal retractions. HEART: Regular rate and rhythm. No murmur. ABDOMEN: Soft. Bowel sounds are present. No masses. Right upper quadrant tenderness. EXTREMITIES: No pedal edema. No calf tenderness. NEUROLOGICAL: Patient is awake, alert and oriented x3. Cranial nerves 2 through 12 are grossly intact. Results CBC & Chem 7: 05/08/19 10:09 05/08/19 10:09 Labs: Abnormal Lab Results - Last 24 Hours (Table) 05/07/19 05/07/19 05/07/19 Range/Units 21:53 21:53 21:53 WBC 14.7 H (3.8-10.6) k/uL RBC (4.30-5.90) m/uL Hgb (13.0-17.5) gm/dL Hct (39.0-53.0) % Neutrophils # 12.4 H (1.3-7.7) k/uL BUN 23 H (9-20) mg/dL Glucose 170 H (74-99) mg/dL POC Glucose (mg/dL) (75-99) mg/dL Plasma Lactic Acid Waqas 2.3 H* (0.7-2.0) mmol/L Amylase 3988 H* (30-110) U/L Lipase >21830 H (23-300) U/L Urine Protein (Negative) 05/07/19 05/07/19 05/08/19 Range/Units 22:01 22:40 10:09 WBC 13.6 H (3.8-10.6) k/uL RBC 4.08 L (4.30-5.90) m/uL Hgb 12.7 L (13.0-17.5) gm/dL Hct 35.8 L (39.0-53.0) % Neutrophils # 11.0 H (1.3-7.7) k/uL BUN (9-20) mg/dL Glucose (74-99) mg/dL POC Glucose (mg/dL) 177 H (75-99) mg/dL Plasma Lactic Acid Waqas (0.7-2.0) mmol/L Amylase (30-110) U/L Lipase (23-300) U/L Urine Protein Trace H (Negative) Thrombosis Risk Factor Assmnt - DVT/VTE Prophylaxis DVT/VTE Prophylaxis: Pharmacologic Prophylaxis ordered - Choose All That Apply Any of the Below Risk Factors Present?: Yes Other Risk Factors: Yes Each Risk Factor Represents 3 Points: Age 75 years or older Other congenital or acquired thrombophilia - If yes, enter type in comment: No Thrombosis Risk Factor Assessment Total Risk Factor Score: 3 Thrombosis Risk Factor Assessment Level: Moderate Risk Assessment and Plan Plan: 1. Acute pancreatitis. Continue IV fluids at 200 MLS per hour, nothing by mouth status. Continue IV fluids, Dilaudid for pain, Zofran for nausea. Ultrasound as above. General surgery consult. 2. Syncopal episode of unclear etiology. Orthostatic vital signs to be checked. Patient may need event monitor. Cardiology consult will be requested. 3. Facial and hand laceration status post suturing done in the emergency center. Tetanus status updated. Continue local wound care. 4. History of pulmonary embolism. Continue eliquis 5 mg twice daily. 5. Hyperlipidemia. Atorvastatin on hold. 6. Hyperlipidemia. Continue levothyroxine 75 g daily. 7. Glaucoma. Continue eyedrops. 8. GI prophylaxis. Protonix. 9. DVT prophylaxis. Eliquis CODE STATUS: Full code Patient will be admitted to the hospital for a minimum of 2 night stay. Discharge plan: To be determined. Impression and plan of care have been directed as dictated by the signing physician. Beverly Trotter nurse practitioner acting as scribe for signing physician.
--- NOTE | 2019-05-08 15:23 | P.CRDCN ---
History of Present Illness Consult date: 05/08/19 Requesting physician: Gio Jj Consult reason: sycope Chief complaint: Syncope 2 History of present illness: This is a pleasant 83-year-old gentleman with past medical history significant for prostate cancer, hypothyroidism, hyperlipidemia, pulmonary embolism, on Eliquis, presented to the hospital after experiencing 2 separate syncopal episodes. According to the patient, he became extremely dizzy, developed nausea and started vomiting at the time of each syncopal episode. The second episode which much more severe than the first, patient has multiple abrasions on his face. He denies having any palpitations at that time, no chest discomfort, no abdominal discomfort or diarrhea. Patient is a nonsmoker, he does not drink alcohol. Blood pressure on arrival here 148/82, heart rate in the 90s, white blood cell count 14.7, hemoglobin 14.6, platelet count 271, sodium 140, potassium 4.5, BUN 23, creatinine 0.8. Asthma lactic acid 2.3 on arrival, troponin 0.012. Amylase on admission 3988 with a lipase of greater than 20,000, this morning amylase 1614 with a lipase of 5721. AST ALT total bilirubin normal. Serum alcohol less than 10. Chest x-ray showed mild basilar pulmonary atelectasis. X-ray of the left hand did not reveal any acute abnormality. Pelvic x-ray normal. CT of the head and neck and spine showed cerebral atrophy and chronic small vessel ischemia with no acute intracranial abnormality. Spondylitic changes in the cervical spine with no fracture. Ct scan of the abdomen and felt pelvis showed minimal fluid in the left side of the pararenal space that could relate to mild pancreatitis. EKG on arrival here showed a normal sinus rhythm with a first-degree AV block, nonspecific ST-T wave changes. Just out of the abdomen showed borderline distended gallbladder and faint internal echoes representing likely sludge. No biliary ductal dilated di ctation, pancreas could not be visualized. At the time of my examination, the patient is lying down in bed, states that he is quite uncomfortable. Denies any dizziness at present. I pressure on arrival here 148/80 with a heart rate of 90, 100% on room air. Blood pressure this morning 106/50 , Heart rate in the 70s, 92% on room air. Past Medical History Past Medical History: Cancer, Eye Disorder, Hearing Disorder / Deafness, Hyperlipidemia, Thyroid Disorder Additional Past Medical History / Comment(s): GLAUCOMA,PROSTATE CANCER History of Any Multi-Drug Resistant Organisms: None Reported Past Surgical History: Hernia Repair, Tonsillectomy Additional Past Surgical History / Comment(s): CYSTOSCOPY,LEFT WRIST Past Anesthesia/Blood Transfusion Reactions: No Reported Reaction Smoking Status: Never smoker Past Alcohol Use History: Rare Additional Past Alcohol Use History / Comment(s): Patient is a lifelong nonsmoker, no illicit drug use, no alcohol abuse. Patient was at home with his . Past Drug Use History: None Reported - Past Family History Father Additional Family Medical History / Comment(s): Father at age 89 from pneumonia. Sister(s) Additional Family Medical History / Comment(s): Patient has 2 sisters that have passed and 1 from unknown cause, second one from alcohol abuse. Patient does not have any brothers. Patient has 2 children with no major medical problems. Mother Family Medical History: No Reported History Additional Family Medical History / Comment(s): Mother at age 69 from hernia, and location. Medications and Allergies Home Medications Medication Instructions Recorded Confirmed Type Ascorbic Acid [Vitamin C] 500 mg PO DAILY 12/20/14 05/07/19 History Atorvastatin [Lipitor] 40 mg PO HS 12/20/14 05/07/19 History Calcium Carbonate/Vitamin D3 2 tab PO DAILY 12/20/14 05/07/19 History [Calcium 600 + Vit D Tablet] Glucosamine/Chondr Hoover A Sod [Osteo 2 tab PO DAILY 12/20/14 05/07/19 History Bi-Flex Caplet] Levothyroxine Sodium [Synthroid] 75 mcg PO DAILY 12/20/14 05/07/19 History Apixaban [Eliquis] 5 mg PO BID 05/07/19 05/07/19 History Dorzolamide 2% [Trusopt 2%] 1 drops BOTH EYES BID 05/07/19 05/07/19 History Krill Oil 500 mg PO DAILY 05/07/19 05/07/19 History Latanoprost [Xalatan 0.005%] 1 drop BOTH EYES HS 05/07/19 05/07/19 History Timolol [Betimol 0.5% Ophth Soln] 1 drop BOTH EYES BID 05/07/19 05/07/19 History Vit A/Vit C/Vit E/Zinc/Copper 1 cap PO DAILY 05/07/19 05/07/19 History [Vision Formula Softgel] Vitamin B Complex 1 cap PO DAILY 05/07/19 05/07/19 History Allergies Allergy/AdvReac Type Severity Reaction Status Date / Time No Known Allergies Allergy Verified 05/07/19 22:39 Physical Exam Vitals: Vital Signs Temp Pulse Pulse Resp BP BP Pulse Ox 05/08/19 12:00 76 16 106/55 92 L 05/08/19 11:37 16 05/08/19 08:00 98.7 F 78 16 106/57 91 L 05/08/19 04:00 98.2 F 98 16 110/58 92 L 05/08/19 03:47 100 18 05/08/19 02:06 98.6 F 100 18 132/65 91 L 05/08/19 02:05 100 18 05/07/19 21:53 96 20 149/83 100 Intake and Output 05/08/19 05/08/19 05/08/19 06:59 14:59 22:59 Intake Total 1000 0 Balance 1000 0 Intake: Intake, IV Titration 1000 Amount Sodium Chloride 0.9% 1, 1000 000 ml @ 200 mls/hr IV . Q5H [facility] Rx#:[id number] Oral 0 Other: Voiding Method Urinal Urinal Weight 80.5 kg Gen: This is an 83-year-old male. Patient is in bed and appears to be comfortable and in no acute distress. HEENT: Head has areas of abrasions, lacerations on the chin, mouth, and for head. NECK: Supple. No JVD. No lymphadenopathy. No thyromegaly. LUNGS: Clear to auscultation. No wheezes or rhonchi. No intercostal retractions. HEART: Regular rate and rhythm. No murmur. ABDOMEN: Soft. Bowel sounds are present. No masses. Right upper quadrant tenderness. EXTREMITIES: No pedal edema. No calf tenderness. Abrasions and ecchymosis noted to the left hand NEUROLOGICAL: Patient is awake, alert and oriented x3. Cranial nerves 2 through 12 are grossly intact. Results 05/08/19 10:09 05/08/19 10:09 Cardiac Enzymes 05/07/19 05/07/19 05/08/19 Range/Units 21:53 21:53 10:09 AST 37 27 (17-59) U/L CK-MB (CK-2) 1.6 (0.0-2.4) ng/mL Troponin I <0.012 (0.000-0.034) ng/mL Coagulation 05/07/19 Range/Units 22:30 PT 11.0 (9.0-12.0) sec APTT 26.1 (22.0-30.0) sec CBC 05/07/19 05/08/19 Range/Units 21:53 10:09 WBC 14.7 H 13.6 H (3.8-10.6) k/uL RBC 4.91 4.08 L (4.30-5.90) m/uL Hgb 14.6 12.7 L (13.0-17.5) gm/dL Hct 43.2 35.8 L (39.0-53.0) % Plt Count 271 225 (150-450) k/uL Comprehensive Metabolic Panel 05/07/19 05/08/19 Range/Units 21:53 10:09 Sodium 140 141 (137-145) mmol/L Potassium 4.5 3.9 (3.5-5.1) mmol/L Chloride 105 110 H (98-107) mmol/L Carbon Dioxide 25 23 (22-30) mmol/L BUN 23 H 24 H (9-20) mg/dL Creatinine 0.89 0.93 (0.66-1.25) mg/dL Glucose 170 H 105 H (74-99) mg/dL Calcium 9.9 8.7 (8.4-10.2) mg/dL AST 37 27 (17-59) U/L ALT 42 33 (21-72) U/L Alkaline Phosphatase 56 41 (38-126) U/L Total Protein 6.9 5.5 L (6.3-8.2) g/dL Albumin 4.5 3.2 L (3.5-5.0) g/dL Current Medications Generic Name Dose Route Start Last Admin Trade Name Freq PRN Reason Stop Dose Admin Apixaban 5 mg 05/08/19 21:00 Eliquis PO BID CHRISTY Dorzolamide HCl 1 drops 05/08/19 21:00 Trusopt BOTH EYES BID CHRISTY Hydromorphone HCl 1 mg 05/08/19 01:15 Dilaudid IVP Q3HR PRN Severe Pain Sodium Chloride 1,000 mls @ 100 mls/hr 05/07/19 22:00 05/07/19 23:15 Saline 0.9% IV 100 mls/hr .Q10H CHRISTY Administration Latanoprost 1 drops 05/08/19 21:00 Xalatan 0.005% BOTH EYES HS CHRISTY Levothyroxine Sodium 37.5 mcg 05/09/19 09:00 Synthroid Ivp IV DAILY CHRISTY Morphine Sulfate 4 mg 05/08/19 01:15 Morphine Sulfate (Inj) IV Q4HR PRN Severe Pain Naloxone HCl 0.2 mg 05/08/19 01:15 Narcan IV Q2M PRN Opioid Reversal Ondansetron HCl 4 mg 05/08/19 01:15 05/08/19 06:24 Zofran IVP 4 mg Q8HR PRN Administration Nausea And Vomiting Pantoprazole Sodium 40 mg 05/08/19 09:00 05/08/19 12:25 Protonix IV Not Given DAILY CHRISTY Timolol Maleate 1 drops 05/08/19 21:00 Timoptic BOTH EYES BID CHRISTY Intake and Output 05/08/19 05/08/19 05/08/19 06:59 14:59 22:59 Intake Total 1000 0 Balance 1000 0 Intake: Intake, IV Titration 1000 Amount Sodium Chloride 0.9% 1, 1000 000 ml @ 200 mls/hr IV . Q5H [facility] Rx#:[id number] Oral 0 Other: Voiding Method Urinal Urinal Weight 80.5 kg 05/08/19 10:09 05/08/19 10:09 EKG Interpretations (text) EKG shows sinus rhythm with first-degree AV block Assessment and Plan Plan: Assessment and plan 1. Acute pancreatitis. 2. Syncopal episode , rule out cardiac causes 3. Facial and hand laceration status post suturing done in the emergency center . 4. History of pulmonary embolism. 5. Hyperlipidemia. 6. Hypothyroidism Plan We will obtain an echocardiogram with Doppler study, continue to monitor for any tachycardia or bradycardia arrhythmias. Check orthostatic heart rate and blood pressure every shift. Further recommendations to follow. DNP note has been reviewed, I agree with a documented findings and plan of care. Patient was seen and examined.
--- NOTE | 2019-05-08 18:10 | ECHOF ---
Referral Reason:syncope MEASUREMENTS -------- HEIGHT: 167.6 cm WEIGHT: 80.3 kg BP: IVSd: 1.3 cm (0.6 - 1.1) LVIDd: 3.3 cm (3.9 - 5.3) LVPWd: 1.2 cm (0.6 - 1.1) IVSs: 1.7 cm LVIDs: 1.5 cm LVPWs: 1.5 cm LAESV Index (A-L): 24.07 ml/m Ao Diam: 3.7 cm (2.0 - 3.7) AV Cusp: 1.4 cm (1.5 - 2.6) LA Diam: 3.4 cm (2.7 - 3.8) MV EXCURSION: 10.759 mm (> 18.000) MV EF SLOPE: 56 mm/s (70 - 150) EPSS: 0.7 cm MV E Candido: 1.11 m/s MV DecT: 130 ms MV A Candido: 0.90 m/s MV E/A Ratio: 1.23 AV maxP.61 mmHg AV meanP.40 mmHg RAP: 5.00 mmHg RVSP: 29.16 mmHg FINDINGS -------- Sinus rhythm. This was a technically good study. The left ventricular size is normal. There is mild concentric left ventricular hypertrophy. Overa ll left ventricular systolic function is normal with, an EF between 55 - 60 %. The diastolic fillin g pattern is normal for the age of the patient 12.71. The right ventricle is normal in size. The left atrial size is normal. Normal LA size by volume 22+/-6 ml/m2. The right atrial size is normal. Aortic valve is trileaflet and is mildly thickened. There is mild aortic stenosis present. Peak/m toribio gradient across the Aortic Valve is 23.61mmHg / 12.40mmHg. The mitral valve is normal. There is trace mitral regurgitation. The tricuspid valve appears structurally normal. Mild tricuspid regurgitation present. Right vent ricular systolic pressure is normal at < 35 mmHg. There is no pulmonic regurgitation present. The aortic root size is normal. IVC Not well visulized. There is no pericardial effusion. CONCLUSIONS -------- 1. Sinus rhythm. 2. This was a technically good study. 3. The left ventricular size is normal. 4. There is mild concentric left ventricular hypertrophy. 5. Overall left ventricular systolic function is normal with, an EF between 55 - 60 %. 6. The diastolic filling pattern is normal for the age of the patient 12.71 7. The right ventricle is normal in size. 8. The left atrial size is normal. 9. Normal LA size by volume 22+/-6 ml/m2. 10. The right atrial size is normal. 11. Aortic valve is trileaflet and is mildly thickened. 12. There is mild aortic stenosis present. 13. Peak/mean gradient across the Aortic Valve is 23.61mmHg / 12.40mmHg. 14. The mitral valve is normal. 15. There is trace mitral regurgitation. 16. The tricuspid valve appears structurally normal. 17. Mild tricuspid regurgitation present. 18. Right ventricular systolic pressure is normal at < 35 mmHg. 19. There is no pulmonic regurgitation present. 20. The aortic root size is normal. 21. IVC Not well visulized. 22. There is no pericardial effusion. ELECTROENCEPHALOGRAPHIC TECHNOLOGIST: Celena Walsh RDCS
[2019-05-08] MEDS: TIMOLOL 0.5% OPHTH DROPS 5 ML BTL BOTH EYES SCH (19:44)
[2019-05-08] MEDS: APIXABAN 5 MG TAB PO SCH (19:44)
[2019-05-08] MEDS: LATANOPROST 0.005% OPHTH DROPS 2.5 ML BTL BOTH EYES SCH (19:44)
[2019-05-08] MEDS: DORZOLAMIDE HCL 2% DROPS 10 ML BTL BOTH EYES SCH (19:44)
[2019-05-09] MEDS: SODIUM CHLORIDE 0.9% 1,000 ML IV SCH (05:47)
[2019-05-09 06:17] LABS: Basophils % (A) 0 %; Eosinophils % (A) 0 %; HGB 12.2 gm/dL (13.0-17.5); Lymphocytes # (A) 1.3 k/uL (1.0-4.8); Lymphocytes % (A) 10 %; MCH 31.1 pg (25.0-35.0); MCHC 35.8 g/dL (31.0-37.0); MCV 87.1 fL (80.0-100.0); Mean Platelet Volume 6.2; Monocytes # (A) 0.7 k/uL (0-1.0); Monocytes % (A) 5 %; Neutrophils # (A) 10.4 k/uL (1.3-7.7); Neutrophils % (A) 83 %; Platelet Count 181 k/uL (150-450); RBC 3.91 m/uL (4.30-5.90); RDW 13.3 % (11.5-15.5); WBC 12.5 k/uL (3.8-10.6)
[2019-05-09 06:33] LABS: ALT 27 U/L (21-72); AST 26 U/L (17-59); African American GFR (CKD) >90 (>60 ml/min/1.73 sqM); Alkaline Phosphatase 37 U/L (38-126); Anion Gap 6 mmol/L; Blood Urea Nitrogen 20 mg/dL (9-20); Calcium 8.5 mg/dL (8.4-10.2); Carbon Dioxide 23 mmol/L (22-30); Chloride 112 mmol/L (98-107); Glucose 95 mg/dL (74-99); Magnesium 1.8 mg/dL (1.6-2.3); Non-African American GFR(CKD) 82 (>60 ml/min/1.73 sqM); Potassium 3.4 mmol/L (3.5-5.1); Sodium 141 mmol/L (137-145); Total Bilirubin 1.3 mg/dL (0.2-1.3); Total Protein 5.2 g/dL (6.3-8.2)
[2019-05-09 06:46] LABS: Amylase 476 U/L (30-110)
--- NOTE | 2019-05-09 08:10 | P.GSCN ---
History of Present Illness Consult date: 05/08/19 Reason for Consult: trauma History of present illness: CHIEF COMPLAINT: trauma HISTORY OF PRESENT ILLNESS: 83-year-old male was admitted to hospital secondary to fall with positive loss of consciousness. Patient reports having 2 falls yesterday at home and hitting his face. He reports feeling nauseous throughout the day as well. He reports lower abdominal pain during examination. Denies emesis. Patient was also found to have pancreatitis on admission. He denies history of gallstones. He denies alcohol use. PAST MEDICAL HISTORY: See list. PAST SURGICAL HISTORY: See list. SOCIAL HISTORY: No illicit drug use. REVIEW OF SYSTEMS: CONSTITUTIONAL: Denies fever or chills. HEENT: Denies blurred vision, vision changes, or eye pain. Denies hemoptysis CARDIOVASCULAR: Denies chest pain or pressure. RESPIRATORY: No shortness of breath. GASTROINTESTINAL: Refer to [facility] for pertinent findings HEMATOLOGIC: Denies bleeding disorders. GENITOURINARY: Denies any blood in urine. SKIN: Denies pruitis. Denies rash. PHYSICAL EXAM: VITAL SIGNS: Reviewed. GENERAL: Well-developed in no acute distress. HEENT: No sclera icterus. Extraocular movements grossly intact. Moist buccal mucosa. Head is normocephalic. ABDOMEN: Soft. Nondistended. Mild tenderness with palpation to bilateral lower quadrants. NEUROLOGIC: Alert and oriented. Cranial nerves II through XII grossly intact. SKIN: Ecchymosis to face LABORATORY DATA: WBC 14.7. Hemoglobin 14.6. Platelet count 271. IMAGING: CAT scan of the brain revealed cerebral atrophy and chronic small vessel ischemia. No acute intracranial abnormality. CAT scan of the cervical spine reveals spondylotic changes in the cervical spine. No fracture seen. Pelvic x- ray was normal. Chest x-ray showed mild basilar pulmonary atelectasis. Possible minimal airspace infiltrate. CAT scan of the abdomen and pelvis with contrast revealed minimal fluid in the left anterior pararenal space it could relate to mild pancreatitis. No significant edema seen within the pancreas. Atherosclerotic vascular disease. Spondylotic changes of the lumbar spine. Few sigmoid diverticula without diverticulitis. Appendix not actively seen but no signs of appendicitis. ASSESSMENT: 1. Trauma, s/p fall with positive LOC 2. Acute pancreatitis PLAN: 1. Continue management per internal medicine 2. Obtain US abdomen to rule out gallbladder etiology for pancreatitis Nurse practitioner note has been reviewed by physician. Signing provider agrees with the documented findings, assessment, and plan of care. Past Medical History Past Medical History: Cancer, Eye Disorder, Hearing Disorder / Deafness, Hyperlipidemia, Thyroid Disorder Additional Past Medical History / Comment(s): GLAUCOMA,PROSTATE CANCER History of Any Multi-Drug Resistant Organisms: None Reported Past Surgical History: Hernia Repair, Tonsillectomy Additional Past Surgical History / Comment(s): CYSTOSCOPY,LEFT WRIST Past Anesthesia/Blood Transfusion Reactions: No Reported Reaction Smoking Status: Never smoker Past Alcohol Use History: Rare Additional Past Alcohol Use History / Comment(s): Patient is a lifelong nonsmoker, no illicit drug use, no alcohol abuse. Patient was at home with his . Past Drug Use History: None Reported - Past Family History Father Additional Family Medical History / Comment(s): Father at age 89 from pneumonia. Sister(s) Additional Family Medical History / Comment(s): Patient has 2 sisters that have passed and 1 from unknown cause, second one from alcohol abuse. Patient does not have any brothers. Patient has 2 children with no major medical problems. Mother Family Medical History: No Reported History Additional Family Medical History / Comment(s): Mother at age 69 from hernia, and location. Medications and Allergies Home Medications Medication Instructions Recorded Confirmed Type Ascorbic Acid [Vitamin C] 500 mg PO DAILY 12/20/14 05/07/19 History Atorvastatin [Lipitor] 40 mg PO HS 12/20/14 05/07/19 History Calcium Carbonate/Vitamin D3 2 tab PO DAILY 12/20/14 05/07/19 History [Calcium 600 + Vit D Tablet] Glucosamine/Chondr Hoover A Sod [Osteo 2 tab PO DAILY 12/20/14 05/07/19 History Bi-Flex Caplet] Levothyroxine Sodium [Synthroid] 75 mcg PO DAILY 12/20/14 05/07/19 History Apixaban [Eliquis] 5 mg PO BID 05/07/19 05/07/19 History Dorzolamide 2% [Trusopt 2%] 1 drops BOTH EYES BID 05/07/19 05/07/19 History Krill Oil 500 mg PO DAILY 05/07/19 05/07/19 History Latanoprost [Xalatan 0.005%] 1 drop BOTH EYES HS 05/07/19 05/07/19 History Timolol [Betimol 0.5% Ophth Soln] 1 drop BOTH EYES BID 05/07/19 05/07/19 History Vit A/Vit C/Vit E/Zinc/Copper 1 cap PO DAILY 05/07/19 05/07/19 History [Vision Formula Softgel] Vitamin B Complex 1 cap PO DAILY 05/07/19 05/07/19 History Allergies Allergy/AdvReac Type Severity Reaction Status Date / Time No Known Allergies Allergy Verified 05/07/19 22:39 Surgical - Exam Vital Signs Pulse Resp BP Pulse Ox 96 20 149/83 100 05/07/19 21:53 05/07/19 21:53 05/07/19 21:53 05/07/19 21:53 Results - Labs 05/09/19 05:26 05/09/19 05:26 Abnormal Lab Results - Last 24 Hours (Table) 05/07/19 05/07/19 05/07/19 Range/Units 21:53 21:53 21:53 WBC 14.7 H (3.8-10.6) k/uL RBC (4.30-5.90) m/uL Hgb (13.0-17.5) gm/dL Hct (39.0-53.0) % Neutrophils # 12.4 H (1.3-7.7) k/uL Chloride (98-107) mmol/L BUN 23 H (9-20) mg/dL Glucose 170 H (74-99) mg/dL POC Glucose (mg/dL) (75-99) mg/dL Plasma Lactic Acid Waqas 2.3 H* (0.7-2.0) mmol/L Total Protein (6.3-8.2) g/dL Albumin (3.5-5.0) g/dL Amylase 3988 H* (30-110) U/L Lipase >90305 H (23-300) U/L Urine Protein (Negative) 05/07/19 05/07/19 05/08/19 Range/Units 22:01 22:40 10:09 WBC 13.6 H (3.8-10.6) k/uL RBC 4.08 L (4.30-5.90) m/uL Hgb 12.7 L (13.0-17.5) gm/dL Hct 35.8 L (39.0-53.0) % Neutrophils # 11.0 H (1.3-7.7) k/uL Chloride (98-107) mmol/L BUN (9-20) mg/dL Glucose (74-99) mg/dL POC Glucose (mg/dL) 177 H (75-99) mg/dL Plasma Lactic Acid Waqas (0.7-2.0) mmol/L Total Protein (6.3-8.2) g/dL Albumin (3.5-5.0) g/dL Amylase (30-110) U/L Lipase (23-300) U/L Urine Protein Trace H (Negative) 05/08/19 Range/Units 10:09 WBC (3.8-10.6) k/uL RBC (4.30-5.90) m/uL Hgb (13.0-17.5) gm/dL Hct (39.0-53.0) % Neutrophils # (1.3-7.7) k/uL Chloride 110 H (98-107) mmol/L BUN 24 H (9-20) mg/dL Glucose 105 H (74-99) mg/dL POC Glucose (mg/dL) (75-99) mg/dL Plasma Lactic Acid Waqas (0.7-2.0) mmol/L Total Protein 5.5 L (6.3-8.2) g/dL Albumin 3.2 L (3.5-5.0) g/dL Amylase 1614 H* (30-110) U/L Lipase 5721 H (23-300) U/L Urine Protein (Negative) Diabetes panel 05/07/19 05/08/19 Range/Units 21:53 10:09 Sodium 140 141 (137-145) mmol/L Potassium 4.5 3.9 (3.5-5.1) mmol/L Chloride 105 110 H (98-107) mmol/L Carbon Dioxide 25 23 (22-30) mmol/L BUN 23 H 24 H (9-20) mg/dL Creatinine 0.89 0.93 (0.66-1.25) mg/dL Glucose 170 H 105 H (74-99) mg/dL Calcium 9.9 8.7 (8.4-10.2) mg/dL AST 37 27 (17-59) U/L ALT 42 33 (21-72) U/L Alkaline Phosphatase 56 41 (38-126) U/L Total Protein 6.9 5.5 L (6.3-8.2) g/dL Albumin 4.5 3.2 L (3.5-5.0) g/dL Calcium panel 05/07/19 05/08/19 Range/Units 21:53 10:09 Calcium 9.9 8.7 (8.4-10.2) mg/dL Albumin 4.5 3.2 L (3.5-5.0) g/dL Pituitary panel 05/07/19 05/08/19 Range/Units 21:53 10:09 Sodium 140 141 (137-145) mmol/L Potassium 4.5 3.9 (3.5-5.1) mmol/L Chloride 105 110 H (98-107) mmol/L Carbon Dioxide 25 23 (22-30) mmol/L BUN 23 H 24 H (9-20) mg/dL Creatinine 0.89 0.93 (0.66-1.25) mg/dL Glucose 170 H 105 H (74-99) mg/dL Calcium 9.9 8.7 (8.4-10.2) mg/dL Adrenal panel 05/07/19 05/08/19 Range/Units 21:53 10:09 Sodium 140 141 (137-145) mmol/L Potassium 4.5 3.9 (3.5-5.1) mmol/L Chloride 105 110 H (98-107) mmol/L Carbon Dioxide 25 23 (22-30) mmol/L BUN 23 H 24 H (9-20) mg/dL Creatinine 0.89 0.93 (0.66-1.25) mg/dL Glucose 170 H 105 H (74-99) mg/dL Calcium 9.9 8.7 (8.4-10.2) mg/dL Total Bilirubin 1.2 1.0 (0.2-1.3) mg/dL AST 37 27 (17-59) U/L ALT 42 33 (21-72) U/L Alkaline Phosphatase 56 41 (38-126) U/L Total Protein 6.9 5.5 L (6.3-8.2) g/dL Albumin 4.5 3.2 L (3.5-5.0) g/dL
[2019-05-09] MEDS ORDERED: LEVOTHYROXINE IVP 100 MCG/5 ML VIAL IV SCH (09:00)
[2019-05-09] MEDS: PANTOPRAZOLE 40 MG/10 ML VIAL IV SCH (09:15)
[2019-05-09] MEDS: APIXABAN 5 MG TAB PO SCH ×2 (09:15→21:10)
[2019-05-09] MEDS: TIMOLOL 0.5% OPHTH DROPS 5 ML BTL BOTH EYES SCH ×2 (09:18→21:10)
[2019-05-09] MEDS: DORZOLAMIDE HCL 2% DROPS 10 ML BTL BOTH EYES SCH ×2 (09:18→21:10)
--- NOTE | 2019-05-09 11:00 | P.PN ---
Subjective Progress Note Date: 05/09/19 CHIEF COMPLAINT: trauma HISTORY OF PRESENT ILLNESS: Patient examined at the bedside. He reports his abdominal pain has resolved. No longer feeling nauseous. No vomiting. Amylase and lipase are improving. Abdominal ultrasound reveals borderline distended gallbladder and likely sludge. No abnormal wall thickening or gallstones. He is requesting something to drink. PHYSICAL EXAM: VITAL SIGNS: Reviewed. GENERAL: Well-developed in no acute distress. HEENT: No sclera icterus. Extraocular movements grossly intact. Moist buccal mucosa. Head is normocephalic. ABDOMEN: Soft. Nondistended. Nontender. NEUROLOGIC: Alert and oriented. Cranial nerves II through XII grossly intact. SKIN: Ecchymosis to face ASSESSMENT: 1. Trauma, s/p fall with positive LOC 2. Acute pancreatitis PLAN: Continue management per internal medicine Begin clear liquid diet No surgical intervention recommended at this time Patient may benefit from HIDA scan outpatient Nurse practitioner note has been reviewed by physician. Signing provider agrees with the documented findings, assessment, and plan of care. Objective - Vital Signs Vital signs: Vital Signs Temp 98.0 F 05/09/19 04:00 Pulse 75 05/09/19 04:00 Resp 16 05/09/19 04:00 BP 113/55 05/09/19 04:00 Pulse Ox 92 L 05/09/19 04:00 Intake & Output 05/08/19 05/09/19 05/09/19 18:59 06:59 18:59 Intake Total 1000 Output Total 300 Balance 1000 -300 Weight 80.2 kg Intake: Intake, IV Titration 1000 Amount Sodium Chloride 0.9% 1, 1000 000 ml @ 100 mls/hr IV . Q10H [facility] Rx#:[id number] Oral 0 Output: Urine 300 Other: Voiding Method Urinal Urinal # Voids 1 - Labs CBC & Chem 7: 05/09/19 05:26 05/09/19 05:26 Labs: Abnormal Lab Results - Last 24 Hours (Table) 05/08/19 05/09/19 05/09/19 Range/Units 10:09 05:26 05:26 WBC 12.5 H (3.8-10.6) k/uL RBC 3.91 L (4.30-5.90) m/uL Hgb 12.2 L (13.0-17.5) gm/dL Hct 34.0 L (39.0-53.0) % Neutrophils # 10.4 H (1.3-7.7) k/uL Potassium 3.4 L (3.5-5.1) mmol/L Chloride 110 H 112 H (98-107) mmol/L BUN 24 H (9-20) mg/dL Glucose 105 H (74-99) mg/dL Alkaline Phosphatase 37 L (38-126) U/L Total Protein 5.5 L 5.2 L (6.3-8.2) g/dL Albumin 3.2 L 3.0 L (3.5-5.0) g/dL Amylase 1614 H* 476 H* (30-110) U/L Lipase 5721 H 758 H (23-300) U/L
--- NOTE | 2019-05-09 12:28 | P.PN ---
Subjective Progress Note Date: 05/09/19 This is a pleasant 83-year-old gentleman with past medical history significant for prostate cancer, hypothyroidism, hyperlipidemia, pulmonary embolism, on Eliquis, presented to the hospital after experiencing 2 separate syncopal episodes. According to the patient, he became extremely dizzy, dev eloped nausea and started vomiting at the time of each syncopal episode. The second episode which much more severe than the first, patient has multiple abrasions on his face. He denies having any palpitations at that time, no chest discomfort, no abdominal discomfort or diarrhea. Patient is a nonsmoker, he does not drink alcohol. Blood pressure on arrival here 148/82, heart rate in the 90s, white blood cell count 14.7, hemoglobin 14.6, platelet count 271, sodium 140, potassium 4.5, BUN 23, creatinine 0.8. Asthma lactic acid 2.3 on arrival, troponin 0.012. Amylase on admission 3988 with a lipase of greater than 20,000, this morning amylase 1614 with a lipase of 5721. AST ALT total bilirubin normal. Serum alcohol less than 10. Chest x-ray showed mild basilar pulmonary atelectasis. X-ray of the left hand did not reveal any acute abnormality. Pelvic x-ray normal. CT of the head and neck and spine showed cerebral atrophy and chronic small vessel ischemia with no acute intracranial abnormality. Spondylitic changes in the cervical spine with no fracture. Ct scan of the abdomen and felt pelvis showed minimal fluid in the left side of the pararenal space that could relate to mild pancreatitis. EKG on arrival here showed a normal sinus rhythm with a first-degree AV block, nonspecific ST-T wave changes. Just out of the abdomen showed borderline distended gallbladder and f aint internal echoes representing likely sludge. No biliary ductal dilated dictation, pancreas could not be visualized. At the time of my examination, the patient is lying down in bed, states that he is quite uncomfortable. Denies any dizziness at present. Blood pressure on arrival here 148/80 with a heart rate of 90, 100% on room air. Blood pressure this morning 106/50 , Heart rate in the 70s, 92% on room air. 05/09/2019 Patient was seen and examined this morning, feeling significantly better overall. Denies any nausea or abdominal discomfort. No arrhythmias have been noted on the monitor. Echocardiogram with Doppler study was obtained which revealed an ejection fraction of 55-60%. No significant orthostatics. Blood pressure this morning 140/60, heart rate in the 80s to 90s, 93% on room air. White blood cell count today 12.5, hemoglobin 12.2, platelet count 181. Sodium 141, potassium 3.4, BUN 20 and creatinine 0.8. Objective - Vital Signs Vital signs: Vital Signs Temp 99.1 F 05/09/19 08:00 Pulse 82 05/09/19 11:49 Resp 16 05/09/19 11:49 BP 144/66 05/09/19 11:45 Pulse Ox 93 L 05/09/19 11:45 Intake & Output 05/08/19 05/09/19 05/09/19 18:59 06:59 18:59 Intake Total 1000 Output Total 300 Balance 1000 -300 Weight 80.2 kg Intake: Intake, IV Titration 1000 Amount Sodium Chloride 0.9% 1, 1000 000 ml @ 100 mls/hr IV . Q10H [facility] Rx#:[id number] Oral 0 Output: Urine 300 Other: Voiding Method Urinal Urinal Urinal # Voids 1 - Exam Gen: This is an 83-year-old male. Patient is in bed and appears to be comfortable and in no acute distress. HEENT: Head has areas of abrasions, lacerations on the chin, mouth, and for head. NECK: Supple. No JVD. No lymphadenopathy. No thyromegaly. LUNGS: Clear to auscultation. No wheezes or rhonchi. No intercostal retractions. HEART: Regular rate and rhythm. No murmur. ABDOMEN: Soft. Bowel sounds are present. No masses. Right upper quadrant tenderness. EXTREMITIES: No pedal edema. No calf tenderness. Abrasions and ecchymosis noted to the left hand NEUROLOGICAL: Patient is awake, alert and oriented x3. Cranial nerves 2 through 12 are grossly intact. - Labs CBC & Chem 7: 05/09/19 05:26 05/09/19 05:26 Labs: Abnormal Lab Results - Last 24 Hours (Table) 05/09/19 05/09/19 Range/Units 05:26 05:26 WBC 12.5 H (3.8-10.6) k/uL RBC 3.91 L (4.30-5.90) m/uL Hgb 12.2 L (13.0-17.5) gm/dL Hct 34.0 L (39.0-53.0) % Neutrophils # 10.4 H (1.3-7.7) k/uL Potassium 3.4 L (3.5-5.1) mmol/L Chloride 112 H (98-107) mmol/L Alkaline Phosphatase 37 L (38-126) U/L Total Protein 5.2 L (6.3-8.2) g/dL Albumin 3.0 L (3.5-5.0) g/dL Amylase 476 H* (30-110) U/L Lipase 758 H (23-300) U/L Assessment and Plan Plan: Assessment and plan 1. Acute pancreatitis. 2. Syncopal episode , likely vasovagal in nature 3. Facial and hand laceration status post suturing done in the emergency center. 4. History of pulmonary embolism. 5. Hyperlipidemia. 6. Hypothyroidism Plan Echocardiogram with Doppler study revealed a normal left ventricular systolic function. From cardiology's perspective we will continue this patient on his current medications. He may be discharged home from cardiology's perspective, we'll make him a follow-up appointment in the office post discharge. DNP note has been reviewed, I agree with a documented findings and plan of care. Patient was seen and examined.
--- NOTE | 2019-05-09 15:18 | P.PN ---
Subjective Progress Note Date: 05/09/19 This is an 83-year-old male patient of Dr. Jj with past medical history pulmonary embolism on eliquis, prostate cancer, hypothyroidism, glaucoma, hyperlipidemia. Patient states that he was feeling dizzy with nausea and collapsing on 2 separate occasions completely passed out and hit his lip one time and then his chin on the second time causing abrasions, lacerations. He denies having any abdominal pain that he noticed at the time. He denies any diarrhea. His heard him and she called 911. Patient denies any previous history of pancreatitis. He denies having gallstones. He has not had a cholecystectomy. He denies any alcohol use. He denies any [id number] or herbal medications usage. Patient came into [facility] emergency center for evaluation. Initial blood pressure 149/83, heart rate 96, pulse ox 100%. WBC 14.7, hemoglobin 14.6, electrolytes within normal limits, creatinine 0.89, blood sugar 170. Liver function tests within normal limits, troponin negative, lipase 20,000, amylase 4453, alcohol level less than 10. Lactic acid 2.3 and patient was status post 2 and half liters of IV fluid. CAT scan of the brain showed no urine drug screen negative, urinalysis negative. Patient had suture repair done on 2 lacerations on his face and one on his hand and tetanus status was updated. CAT scan of the brain revealed cerebral atrophy and chronic small vessel ischemia. No acute intracranial abnormality. CAT scan of the cervical spine reveals spondylotic changes in the cervical spine. No fracture seen. Pelvic x-ray was normal. Chest x-ray showed mild basilar pulmonary atelectasis. Possible minimal airspace infiltrate. CAT scan of the abdomen and pelvis with contrast revealed minimal fluid in the left anterior pararenal space it could relate to mild pancreatitis. No significant edema seen within the pancreas. Atherosclerotic vascular disease. Spondylotic changes of the lumbar spine. Few sigmoid diverticula without diverticulitis. Appendix not actively seen but no signs of appendicitis. Patient was admitted to the cardiac stepdown unit and consult requested with general surgeon. Abdominal ultrasound revealed a limited exam. Borderline distended gallbladder and faint internal echoes likely representing sludge. No abnormal wall thickening or shadowing calculi. No evidence of acute cholecystitis. No biliary ductal rotation. Pancreas could not be visualized. Repeat amylase 1614, repeat lipase 5721. 12/4: Patient is followed by general surgery and cardiology. Echocardiogram reveals EF of 55-60% with mild concentric left ventricular hypertrophy, mild aortic stenosis, trace mitral regurgitation, mild tricuspid regurgitation. Repeat lab work this morning reveals a white count of 12.5, hemoglobin 12.2, p otassium 3.4 will be replaced, chloride 112, creatinine 0.8, amylase 476, lipase 758. Consult for GI has been added. Patient is currently on clear liquid diet. Orthostatics are positive. He continues on IV fluids. HIDA scan will be ordered for tomorrow morning. Consult with PT and OT have been added. Review of Systems Constitutional: Reports fatigue, Denies anorexia, Denies chills, Denies fever, Denies lethargy, Denies malaise, Denies poor appetite Eyes: denies blurred vision, denies pain Ears, nose, mouth and throat: Reports vertigo, Denies dysphagia, Denies nasal congestion, Denies nasal discharge Cardiovascular: Reports lightheadedness, Reports syncope, Denies decreased exercise tolerance, Denies dyspnea on exertion, Denies shortness of breath Respiratory: Denies cough, Denies cough with sputum, Denies dyspnea, Denies excessive sputum, Denies hemoptysis, Denies home oxygen, Denies respiratory infections, Denies wheezing Gastrointestinal: Reports abdominal pain, Reports nausea, Denies diarrhea, Denies vomiting Genitourinary: Denies dysuria, Denies urinary retention Musculoskeletal: Reports muscle weakness, Denies frequent falls, Denies gait dysfunction, Denies myalgias Integumentary: Reports wounds, Denies pruritus, Denies rash Neurological: Denies change in mentation, Denies change in speech, Denies numb ness, Denies seizures, Denies weakness Psychiatric: Denies anxiety, Denies depression Endocrine: Denies fatigue, Denies weight change Objective - Vital Signs Vital signs: Vital Signs Temp 98.0 F 05/09/19 04:00 Pulse 75 05/09/19 04:00 Resp 16 05/09/19 04:00 BP 113/55 05/09/19 04:00 Pulse Ox 92 L 05/09/19 04:00 Intake & Output 05/08/19 05/09/19 05/09/19 18:59 06:59 18:59 Intake Total 1000 Output Total 300 Balance 1000 -300 Weight 80.2 kg Intake: Intake, IV Titration 1000 Amount Sodium Chloride 0.9% 1, 1000 000 ml @ 100 mls/hr IV . Q10H [facility] Rx#:[id number] Oral 0 Output: Urine 300 Other: Voiding Method Urinal Urinal # Voids 1 - Exam Gen: This is an 83-year-old male. Patient is in bed and appears to be comfortable and in no acute distress. Patient's is at bedside. HEENT: Head is atraumatic, normocephalic. Pupils equal, round. Sclerae is anicteric. NECK: Supple. No JVD. No lymphadenopathy. No thyromegaly. LUNGS: Clear to auscultation. No wheezes or rhonchi. No intercostal retractions. HEART: Regular rate and rhythm. No murmur. ABDOMEN: Soft. Bowel sounds are present. No masses. Right upper quadrant tenderness. EXTREMITIES: No pedal edema. No calf tenderness. NEUROLOGICAL: Patient is awake, alert and oriented x3. Cranial nerves 2 through 12 are grossly intact. - Labs CBC & Chem 7: 05/09/19 05:26 05/09/19 05:26 Labs: Abnormal Lab Results - Last 24 Hours (Table) 05/08/19 05/08/19 05/09/19 Range/Units 10:09 10:09 05:26 WBC 13.6 H 12.5 H (3.8-10.6) k/uL RBC 4.08 L 3.91 L (4.30-5.90) m/uL Hgb 12.7 L 12.2 L (13.0-17.5) gm/dL Hct 35.8 L 34.0 L (39.0-53.0) % Neutrophils # 11.0 H 10.4 H (1.3-7.7) k/uL Potassium (3.5-5.1) mmol/L Chloride 110 H (98-107) mmol/L BUN 24 H (9-20) mg/dL Glucose 105 H (74-99) mg/dL Alkaline Phosphatase (38-126) U/L Total Protein 5.5 L (6.3-8.2) g/dL Albumin 3.2 L (3.5-5.0) g/dL Amylase 1614 H* (30-110) U/L Lipase 5721 H (23-300) U/L 05/09/19 Range/Units 05:26 WBC (3.8-10.6) k/uL RBC (4.30-5.90) m/uL Hgb (13.0-17.5) gm/dL Hct (39.0-53.0) % Neutrophils # (1.3-7.7) k/uL Potassium 3.4 L (3.5-5.1) mmol/L Chloride 112 H (98-107) mmol/L BUN (9-20) mg/dL Glucose (74-99) mg/dL Alkaline Phosphatase 37 L (38-126) U/L Total Protein 5.2 L (6.3-8.2) g/dL Albumin 3.0 L (3.5-5.0) g/dL Amylase 476 H* (30-110) U/L Lipase 758 H (23-300) U/L Assessment and Plan Plan: 1. Acute pancreatitis. Continue IV fluids at 100 MLS per hour, diet advanced to clear liquids. Continue IV fluids, Dilaudid for pain, Zofran for nausea. Ultrasound as above. General surgery consult. HIDA scan ordered for tomorrow morning 2. Syncopal episode most likely secondary to orthostatic changes and dehydration. Patient may need event monitor. Cardiology consult appreciated. Echocardiogram as above. 3. Facial and hand laceration status post suturing done in the emergency center. Tetanus status updated. Continue local wound care. 4. History of pulmonary embolism. Continue eliquis 5 mg twice daily. 5. Hyperlipidemia. Atorvastatin on hold. 6. Hyperlipidemia. Continue levothyroxine 75 g daily. 7. Glaucoma. Continue eyedrops. 8. GI prophylaxis. Protonix. 9. DVT prophylaxis. Eliquis CODE STATUS: Full code Discharge plan: Home. PT and OT consults. Impression and plan of care have been directed as dictated by the signing physician. Beverly Trotter nurse practitioner acting as scribe for signing physician.
[2019-05-09] MEDS: LATANOPROST 0.005% OPHTH DROPS 2.5 ML BTL BOTH EYES SCH (21:10)
--- NOTE | 2019-05-09 22:51 | CONS ---
CONSULTATION DATE OF DICTATION: 05/09/2019 REASON FOR CONSULTATION: Acute pancreatitis. HISTORY OF PRESENT ILLNESS: The patient is an 83-year-old pleasant white male who was admitted to the hospital with an episode of nausea and vomiting, following which he felt dizzy and passed out. During this time he denies any abdominal pain. His called EMS and brought him to the emergency room and subsequently he was noted to have elevated amylase and lipase consistent with acute pancreatitis. The patient denies ever having these symptoms in the past. Since being in the hospital, he reports no further episodes of nausea, vomiting or epigastric pain. In the emergency room he was noted to have elevated amylase at 4453 and lipase at 20,000 with normal serum transaminases. He did have a CT of the abdomen and pelvis done that showed minimal fluid in the left pararenal space and evidence of mild pancreatitis. He also had an ultrasound of the gallbladder done that showed no biliary ductal dilation, possible sludge in the gallbladder, which was slightly distended. No thickening noted. The patient is doing much better today. He denies any symptoms. He is on a clear liquid diet, tolerating well. PAST MEDICAL HISTORY: His past medical history is significant for: 1. Hypertension. 2. Hyperlipidemia. 3. Hypothyroidism. 4. Glaucoma. PAST SURGICAL HISTORY: 1. Hernia repair. 2. Tonsillectomy. 3. Cystoscopy. 4. Left wrist surgery. FAMILY HISTORY: Mother at 69 after hernia repair. Father from pneumonia. MEDICATIONS AT HOME: 1. Vitamin C. 2. Lipitor. 3. Glucosamine. 4. Eliquis. 5. Synthroid. 6. Vitamin A. 7. Vitamin B. 8. Timolol. ALLERGIES: NONE. SOCIAL HISTORY: No smoking. No alcohol use. REVIEW OF SYSTEMS: CARDIOPULMONARY: No chest pain or shortness of breath. GENITOURINARY: No dysuria or hematuria. MUSCULOSKELETAL: Unremarkable. SKIN: Unremarkable. ENDOCRINE: Unremarkable. PSYCHIATRIC: Unremarkable. NEUROLOGY: Unremarkable. ENT/VISION: Unremarkable. CONSTITUTIONAL: No recent weight loss. No fever, chills, night sweats. PHYSICAL EXAMINATION: Blood pressure is 111/56, pulse rate 94, temperature 98. HEENT examination unremarkable. Conjunctivae pink. Sclerae anicteric. Oral cavity no lesions. Bruise on the lower lip. CHEST: Clear to auscultation. HEART: Regular rate and rhythm. ABDOMEN: Soft. Bowel sounds are positive. No organomegaly. Mild tenderness in the epigastric area. EXTREMITIES: No pedal edema. SKIN: No rashes. NEUROLOGIC: Alert and oriented x3. No focal deficits. LABS: Labs done at the time of admission to the hospital showed WBC 14.7, hemoglobin 14.6, platelets normal. Basic metabolic panel was within normal limits. ALT, AST, T- bilirubin and alkaline phosphatase are normal. Amylase 3988. Lipase more than 20,000. Today lipase is down to 758 and amylase is down to 476. LFTs still remain normal. IMPRESSION: 1. Acute pancreatitis, first episode. Elevated amylase and lipase consistent with acute pancreatitis. Patient presents with nausea, vomiting and some epigastric tenderness on clinical examination. No prior history of acute pancreatitis. No history of alcohol abuse. Ultrasound of the abdomen showed evidence of a slightly distended gallbladder with gallbladder sludge, but no stones. Normal serum transaminases argues against biliary pancreatitis. Etiology of pancreatitis remains unclear, which will be further investigated. 2. History of atrial fibrillation, on Eliquis. 3. Syncopal episode, possibly vasovagal. Cardiology following the patient closely. 4. Laceration on the lip as well as right thumb, which is better. RECOMMENDATIONS: 1. Agree with a clear liquid diet. 2. Repeat labs in the morning. 3. Will obtain fasting triglycerides and antinuclear antibody to rule out autoimmune pancreatitis. 4. Repeat labs in the morning and advance diet as tolerated. Will continue to follow him closely during his hospital stay. Thank you for this consultation. RIVERA / MONAN: [id number] /
[2019-05-10] MEDS: ONDANSETRON 4 MG/2 ML VIAL IVP PRN ×2 (00:17→14:27)
[2019-05-10] MEDS: MORPHINE SULFATE 4 MG/ML SYRINGE IV PRN ×5 (00:17→20:46)
[2019-05-10] MEDS: LEVOTHYROXINE 75 MCG TAB PO SCH (05:14)
[2019-05-10] MEDS: SODIUM CHLORIDE 0.9% 1,000 ML IV SCH ×4 (05:15→17:30)
[2019-05-10 06:29] LABS: Basophils % (A) 0 %; Eosinophils # (A) 0.1 k/uL (0-0.7); Eosinophils % (A) 0 %; HCT 33.8 % (39.0-53.0); HGB 11.4 gm/dL (13.0-17.5); Lymphocytes # (A) 1.4 k/uL (1.0-4.8); Lymphocytes % (A) 11 %; MCH 29.7 pg (25.0-35.0); MCHC 33.8 g/dL (31.0-37.0); MCV 87.8 fL (80.0-100.0); Mean Platelet Volume 6.6; Monocytes # (A) 0.7 k/uL (0-1.0); Monocytes % (A) 5 %; Neutrophils # (A) 10.5 k/uL (1.3-7.7); Neutrophils % (A) 81 %; Platelet Count 180 k/uL (150-450); RBC 3.85 m/uL (4.30-5.90); RDW 12.9 % (11.5-15.5); WBC 12.9 k/uL (3.8-10.6)
[2019-05-10 07:11] LABS: ALT 25 U/L (21-72); AST 27 U/L (17-59); African American GFR (CKD) >90 (>60 ml/min/1.73 sqM); Albumin 2.8 g/dL (3.5-5.0); Alkaline Phosphatase 39 U/L (38-126); Amylase 128 U/L (30-110); Anion Gap 8 mmol/L; Blood Urea Nitrogen 20 mg/dL (9-20); Calcium 8.3 mg/dL (8.4-10.2); Carbon Dioxide 21 mmol/L (22-30); Chloride 111 mmol/L (98-107); Cholesterol 95 mg/dL (<200); Glucose 99 mg/dL (74-99); HDL Cholesterol 38 mg/dL (40-60); LDL Cholesterol,Calculated 42 mg/dL (0-99); Non-African American GFR(CKD) 85 (>60 ml/min/1.73 sqM); Potassium 3.4 mmol/L (3.5-5.1); Sodium 140 mmol/L (137-145); Total Bilirubin 1.5 mg/dL (0.2-1.3); Total Protein 5.3 g/dL (6.3-8.2); Triglycerides 73 mg/dL (<150)
--- NOTE | 2019-05-10 09:17 | NM ---
EXAMINATION TYPE: NM hepatobiliary w CCK DATE OF EXAM: 05/10/2019 COMPARISON: Abdominal pain. Abdominal ultrasound dated 05/08/2019 HISTORY: Biliary sludge and TECHNIQUE: After the intravenous administration of 5.1 mCi Tc 99m Mebrofenin hepatobiliary scintigrap hy is performed. Immediate images post injection. FINDINGS: There is satisfactory initial accumulation of tracer by the liver. The gallbladder is visualized wit hin 18 minutes. The small bowel activity is noted within 48 minutes. At one hour CCK was administer ed, patient was injected with 1.65 mcg of Kinevac, and gallbladder ejection fraction is calculated at 15 %, abnormal. Therefore there is no scintigraphic evidence of cystic or common bile duct obstruct ion to suggest acute cholecystitis or gallbladder dyskinesia. IMPRESSION: Biliary dyskinesia. Abnormal ejection fraction of 15%.
[2019-05-10] MEDS: APIXABAN 5 MG TAB PO SCH ×2 (09:22→20:41)
[2019-05-10] MEDS: PANTOPRAZOLE 40 MG/10 ML VIAL IV SCH (09:22)
[2019-05-10] MEDS: TIMOLOL 0.5% OPHTH DROPS 5 ML BTL BOTH EYES SCH ×2 (09:23→20:42)
[2019-05-10] MEDS: DORZOLAMIDE HCL 2% DROPS 10 ML BTL BOTH EYES SCH ×2 (09:23→20:41)
--- NOTE | 2019-05-10 13:30 | P.PN ---
Subjective Progress Note Date: 05/10/19 Principal diagnosis: Syncope, acute pancreatitis, history of pulmonary embolism, hypertension hyperlipidemia. This is an 83-year-old male patient of Dr. Jj with past medical history pulmonary embolism on eliquis, prostate cancer, hypothyroidism, glaucoma, hyperlipidemia. Patient states that he was feeling dizzy with nausea and collapsing on 2 separate occasions completely passed out and hit his lip one time and then his chin on the second time causing abrasions, lacerations. He denies having any abdominal pain that he noticed at the time. He denies any meena rrhea. His heard him and she called 911. Patient denies any previous history of pancreatitis. He denies having gallstones. He has not had a cholecystectomy. He denies any alcohol use. He denies any [id number] or herbal medications usage. Patient came into [facility] emergency center for evaluation. Initial blood pressure 149/83, heart rate 96, pulse ox 100%. WBC 14.7, hemoglobin 14.6, electrolytes within normal limits, creatinine 0.89, blood sugar 170. Liver function tests within normal limits, troponin negative, lipase 20,000, amylase 4453, alcohol level less than 10. Lactic acid 2.3 and patient was status post 2 and half liters of IV fluid. CAT scan of the brain showed no urine drug screen negative, urinalysis negative. Patient had suture repair done on 2 lacerations on his face and one on his hand and tetanus status was updated. CAT scan of the brain revealed cerebral atrophy and chronic small vessel ischemia. No acute intracranial abnormality. CAT scan of the cervical spine reveals spondylotic changes in the cervical spine. No fracture seen. Pelvic x-ray was normal. Chest x-ray showed mild basilar pulmonary atelectasis. Possible minimal airspace infiltrate. CAT scan of the abdomen and pelvis with contrast revealed minimal fluid in the left anterior pararenal space it could relate to mild pancreatitis. No significant edema seen within the pancreas. Atherosclerotic vascular disease. Spondylotic changes of the lumbar spine. Few sigmoid diverticula without diverticulitis. Appendix not actively seen but no signs of appendicitis. Patient was admitted to the cardiac stepdown unit and consult requested with general surgeon. Abdominal ultrasound revealed a limited exam. Borderline distended gallbladder and faint internal echoes likely representing sludge. No abnormal wall thickening or shadowing calculi. No evidence of acute cholecystitis. No biliary ductal rotation. Pancreas could not be visualized. Repeat amylase 1614, repeat lipase 5721. 05/10: Patient is doing very well his enzyme on down compared to before his pain is under control was evaluated by cardiology he wants to do longer term [employer] when his rate to be discharged the meanwhile with the event he probably had a gallstone created pancreatitis had nausea vomiting and become severely hypotensive and hypovolemic created and cause syncope time to had the head trauma. His syncope and presyncope are much better no sign of bradycardia pat ient is doing well with no further nausea vomiting his volume is better not depleted anymore at this point. Patient still not feeling that well he might be going to rehab Objective - Vital Signs Vital signs: Vital Signs Temp 97.9 F 05/10/19 12:00 Pulse 75 05/10/19 12:00 Resp 18 05/10/19 12:00 BP 125/60 05/10/19 12:00 Pulse Ox 92 L 05/10/19 12:00 Intake & Output 05/09/19 05/10/19 05/10/19 18:59 06:59 18:59 Intake Total 222 360 Output Total 350 100 Balance -128 260 Weight 83 kg Intake: Oral 222 360 Output: Urine 350 100 Other: Voiding Method Urinal Urinal Urinal - Exam Review of Systems Constitutional: Reports fatigue, Denies anorexia, Denies chills, Denies fever, Denies lethargy, Denies malaise, Denies poor appetite Eyes: denies blurred vision, denies pain Ears, nose, mouth and throat: Reports vertigo, Denies dysphagia, Denies nasal congestion, Denies nasal discharge Cardiovascular: Reports lightheadedness, Reports syncope, Denies decreased exercise tolerance, Denies dyspnea on exertion, Denies shortness of breath Respiratory: Denies cough, Denies cough with sputum, Denies dyspnea, Denies excessive sputum, Denies hemoptysis, Denies home oxygen, Denies respiratory infections, Denies wheezing Gastrointestinal: Reports abdominal pain, Reports nausea, Denies diarrhea, Denies vomiting Genitourinary: Denies dysuria, Denies urinary retention Musculoskeletal: Reports muscle weakness, Denies frequent falls, Denies gait dysfunction, Denies myalgias Integumentary: Reports wounds, Denies pruritus, Denies rash Neurological: Denies change in mentation, Denies change in speech, Denies numbness, Denies seizures, Denies weakness Psychiatric: Denies anxiety, Denies depression Endocrine: Denies fatigue, Denies weight change - Exam Gen: This is an 83-year-old male. Patient is in bed and appears to be comfortable and in no acute distress. Patient's is at bedside. HEENT: Head is atraumatic, normocephalic. Pupils equal, round. Sclerae is anicteric. NECK: Supple. No JVD. No lymphadenopathy. No thyromegaly. LUNGS: Clear to auscultation. No wheezes or rhonchi. No intercostal retractions. HEART: Regular rate and rhythm. No murmur. ABDOMEN: Soft. Bowel sounds are present. No masses. Right upper quadrant tenderness. EXTREMITIES: No pedal edema. No calf tenderness. NEUROLOGICAL: Patient is awake, alert and oriented x3. Cranial nerves 2 through 12 are grossly intact. - Labs CBC & Chem 7: 05/11/19 05:35 05/11/19 05:35 Labs: Abnormal Lab Results - Last 24 Hours (Table) 05/10/19 05/10/19 Range/Units 06:15 06:15 WBC 12.9 H (3.8-10.6) k/uL RBC 3.85 L (4.30-5.90) m/uL Hgb 11.4 L (13.0-17.5) gm/dL Hct 33.8 L (39.0-53.0) % Neutrophils # 10.5 H (1.3-7.7) k/uL Potassium 3.4 L (3.5-5.1) mmol/L Chloride 111 H (98-107) mmol/L Carbon Dioxide 21 L (22-30) mmol/L Calcium 8.3 L (8.4-10.2) mg/dL Total Bilirubin 1.5 H (0.2-1.3) mg/dL Total Protein 5.3 L (6.3-8.2) g/dL Albumin 2.8 L (3.5-5.0) g/dL HDL Cholesterol 38 L (40-60) mg/dL Amylase 128 H (30-110) U/L Assessment and Plan Plan: 1. Acute pancreatitis. Continue IV fluids at 100 MLS per hour, diet advanced to clear liquids. Continue IV fluids, Dilaudid for pain, Zofran for nausea. Ultrasound as above. General surgery consult. HIDA scan ordered for tomorrow morning 2. Syncopal episode most likely secondary to orthostatic changes and dehydration. Patient may need event monitor. Cardiology feels no need for any further cardiac testing except as an outpatient longer term heart monitor can be done. 3. Facial and hand laceration status post suturing done in the emergency [address]. Tetanus status updated. Continue local wound care. 4. History of pulmonary embolism. Continue eliquis 5 mg twice daily. 5. Hyperlipidemia. Atorvastatin on hold. 6. Hyperlipidemia. Continue levothyroxine 75 g daily. 7. Glaucoma. Continue eyedrops. 8. GI prophylaxis. Protonix. Debility: Advance PTOT and prepare for [facility] tomorrow.
--- NOTE | 2019-05-10 15:18 | P.PN ---
Subjective Progress Note Date: 05/10/19 CHIEF COMPLAINT: trauma HISTORY OF PRESENT ILLNESS: Patient examined at the bedside. Denies abdominal pain. Denies nausea or vomiting. Tolerating full liquid diet. HIDA scan was completed revealing ejection fraction of 15%. PHYSICAL EXAM: VITAL SIGNS: Reviewed. GENERAL: Well-developed in no acute distress. HEENT: No sclera icterus. Extraocular movements grossly intact. Moist buccal mucosa. Head is normocephalic. ABDOMEN: Soft. Nondistended. Nontender. NEUROLOGIC: Alert and oriented. Cranial nerves II through XII grossly intact. SKIN: Ecchymosis to face ASSESSMENT: 1. Trauma, s/p fall with positive LOC 2. Acute pancreatitis 3. Gallbladder dyskinesia, HIDA scan reveals EF 15% PLAN: Continue management per internal medicine Advance diet as tolerated No inpatient surgical intervention recommended. Patient may follow up with Dr. Garcia outpatient. He he will require laparoscopic cholecystectomy in the future. Nurse practitioner note has been reviewed by physician. Signing provider agrees with the documented findings, assessment, and plan of care. Objective - Vital Signs Vital signs: Vital Signs Temp 97.9 F 05/10/19 12:00 Pulse 75 05/10/19 12:00 Resp 18 05/10/19 12:00 BP 125/60 05/10/19 12:00 Pulse Ox 92 L 05/10/19 12:00 Intake & Output 05/09/19 05/10/19 05/10/19 18:59 06:59 18:59 Intake Total 222 360 Output Total 350 100 Balance -128 260 Weight 83 kg Intake: Oral 222 360 Output: Urine 350 100 Other: Voiding Method Urinal Urinal Urinal - Labs CBC & Chem 7: 05/10/19 06:15 05/10/19 06:15 Labs: Abnormal Lab Results - Last 24 Hours (Table) 05/10/19 05/10/19 Range/Units 06:15 06:15 WBC 12.9 H (3.8-10.6) k/uL RBC 3.85 L (4.30-5.90) m/uL Hgb 11.4 L (13.0-17.5) gm/dL Hct 33.8 L (39.0-53.0) % Neutrophils # 10.5 H (1.3-7.7) k/uL Potassium 3.4 L (3.5-5.1) mmol/L Chloride 111 H (98-107) mmol/L Carbon Dioxide 21 L (22-30) mmol/L Calcium 8.3 L (8.4-10.2) mg/dL Total Bilirubin 1.5 H (0.2-1.3) mg/dL Total Protein 5.3 L (6.3-8.2) g/dL Albumin 2.8 L (3.5-5.0) g/dL HDL Cholesterol 38 L (40-60) mg/dL Amylase 128 H (30-110) U/L
[2019-05-10] MEDS: LATANOPROST 0.005% OPHTH DROPS 2.5 ML BTL BOTH EYES SCH (20:42)
--- NOTE | 2019-05-10 21:13 | PN ---
PROGRESS NOTE DATE OF SERVICE: 05/10/2019 The patient is an 83-year-old pleasant white male who was admitted to the hospital with acute pancreatitis. He presents with nausea, vomiting for the last 2 days duration. He was noted to have elevated amylase and lipase consistent with pancreatitis. His symptoms are gradually improving. Today he is complaining of left side abdominal pain, but no further episodes of nausea, vomiting. Amylase and lipase have significantly improved. He denies any fever, chills, night sweats. On a clear liquid diet, tolerating well. PHYSICAL EXAMINATION: He appears comfortable. No apparent distress. Vital signs stable. Blood pressure is 138/69, pulse rate 83, temperature 99.8. HEENT examination unremarkable. Conjunctivae pink. Sclerae anicteric. Oral cavity no lesions. NECK: No JVD or lymph node enlargement. CHEST: Clear to auscultation. HEART: Regular rate and rhythm. Abdomen is slightly distended. There was mild tenderness in the left lower quadrant and mild tenderness in the epigastric area. Bowel sounds are positive. No organomegaly. EXTREMITIES: No pedal edema. SKIN no rashes. NEURO: He is alert and oriented x3. No focal deficits. LABS: Amylase is 128 and lipase is 93. AST, ALT, T-bilirubin, alkaline phosphatase are normal. WBC 12.9, hemoglobin 11.4, platelets are 180. IMPRESSION: Acute pancreatitis, this being the first episode. Symptoms are gradually improving. Still has some abdominal pain. No further episodes of nausea, vomiting. On a clear liquid diet, tolerating well. Amylase and lipase have almost normalized. Remains on pain medications as needed. HIDA scan showed decreased ejection fraction of the gallbladder. Ultrasound did not show any evidence of gallstones. RECOMMENDATIONS: 1. Continue with a clear liquid diet today. The patient does not want the diet to be advanced because of some abdominal discomfort and nausea. 2. Continue with PPI and pain medications as needed. 3. Zofran as needed. 4. Repeat labs in the morning and we will follow with you closely. Thank you for this consultation. MMODL / IJN: [id number] /
[2019-05-11] MEDS: MORPHINE SULFATE 4 MG/ML SYRINGE IV PRN ×2 (00:43→05:53)
[2019-05-11] MEDS: SODIUM CHLORIDE 0.9% 1,000 ML IV SCH ×2 (00:44→08:27)
[2019-05-11 04:54] VITALS: PULSE 85
[2019-05-11] MEDS: LEVOTHYROXINE 75 MCG TAB PO SCH (05:53)
[2019-05-11 06:34] LABS: Basophils % (A) 0 %; Eosinophils # (A) 0.1 k/uL (0-0.7); Eosinophils % (A) 1 %; HCT 30.6 % (39.0-53.0); HGB 11.2 gm/dL (13.0-17.5); Lymphocytes # (A) 1.3 k/uL (1.0-4.8); Lymphocytes % (A) 12 %; MCH 31.6 pg (25.0-35.0); MCHC 36.7 g/dL (31.0-37.0); MCV 86.2 fL (80.0-100.0); Mean Platelet Volume 9.4; Monocytes # (A) 0.7 k/uL (0-1.0); Monocytes % (A) 6 %; Neutrophils # (A) 8.1 k/uL (1.3-7.7); Neutrophils % (A) 79 %; Platelet Count 124 k/uL (150-450); RBC 3.55 m/uL (4.30-5.90); RDW 13.1 % (11.5-15.5); WBC 10.3 k/uL (3.8-10.6)
[2019-05-11 07:09] LABS: ALT 27 U/L (21-72); AST 22 U/L (17-59); African American GFR (CKD) >90 (>60 ml/min/1.73 sqM); Albumin 2.8 g/dL (3.5-5.0); Alkaline Phosphatase 54 U/L (38-126); Amylase 51 U/L (30-110); Anion Gap 7 mmol/L; Blood Urea Nitrogen 19 mg/dL (9-20); Calcium 8.4 mg/dL (8.4-10.2); Carbon Dioxide 23 mmol/L (22-30); Chloride 111 mmol/L (98-107); Glucose 95 mg/dL (74-99); Non-African American GFR(CKD) 81 (>60 ml/min/1.73 sqM); Potassium 3.2 mmol/L (3.5-5.1); Sodium 141 mmol/L (137-145); Total Bilirubin 1.3 mg/dL (0.2-1.3); Total Protein 5.5 g/dL (6.3-8.2)
[2019-05-11] MEDS: APIXABAN 5 MG TAB PO SCH (08:27)
[2019-05-11 08:58] VITALS: BP 132/54; RESP 18; TEMP 99.1
[2019-05-11] MEDS ORDERED: PANTOPRAZOLE 40 MG TABLET PO SCH (09:00)
[2019-05-11] MEDS: TIMOLOL 0.5% OPHTH DROPS 5 ML BTL BOTH EYES SCH (11:08)
[2019-05-11] MEDS: DORZOLAMIDE HCL 2% DROPS 10 ML BTL BOTH EYES SCH (11:08)
--- NOTE | 2019-05-11 14:37 | P.DS ---
Providers Date of admission: 05/08/19 01:15 Attending physician: Gio Jj Consults: 05/08/19 01:15 Consult Physician Stat Consulting Provider: Isaac Garcia Consult Reason/Comments: trauma Do you want consulting provider notified?: Already Contacted 05/08/19 13:24 Consult Physician Routine Consulting Provider: Joslyn Reddy Consult Reason/Comments: syncope Do you want consulting provider notified?: Yes 05/08/19 18:23 Consult Physician Routine Consulting Provider: Louisa León Consult Reason/Comments: Acute Pancreatitis Do you want consulting provider notified?: Yes, Notify in am Primary care physician: [facility] Course: Principal diagnosis: Syncope, acute pancreatitis, history of pulmonary embolism, hypertension hyperlipidemia. This is an 83-year-old male patient of Dr. Jj with past medical history pulmonary embolism on eliquis, prostate cancer, hypothyroidism, glaucoma, hyperlipidemia. Patient states that he was feeling dizzy with nausea and collapsing on 2 separate occasions completely passed out and hit his lip one time and then his chin on the second time causing abrasions, lacerations. He denies having any abdominal pain that he noticed at the time. He denies any diarrhea. His heard him and she called 911. Patient denies any previous history of pancreatitis. He denies having gallstones. He has not had a cholecystectomy. He denies any alcohol use. He denies any [id number] or herbal medications usage. Patient came into [facility] emergency center for evaluation. Initial blood pressure 149/83, heart rate 96, pulse ox 100%. WBC 14.7, hemoglobin 14.6, electrolytes within normal limits, creatinine 0.89, blood sugar 170. Liver function tests within normal limits, troponin negative, lipase 20,000, amylase 4453, alcohol level less than 10. Lactic acid 2.3 and patient was status post 2 and half liters of IV fluid. CAT scan of the brain showed no urine drug screen negative, urinalysis negative. Patient had suture repair done on 2 lacerations on his face and one on his hand and tetanus status was updated. CAT scan of the brain revealed cerebral atrophy and chronic small vessel ischemia. No acute intracranial abnormality. CAT scan of the cervical spine reveals spondylotic changes in the cervical spine. No fracture seen. Pelvic x-ray was normal. Chest x-ray showed mild basilar pulmonary atelectasis. Possible minimal airspace infiltrate. CAT scan of the abdomen and pelvis with contrast revealed minimal fluid in the left anterior pararenal space it could relate to mild pancreatitis. No significant edema seen within the pancreas. Atherosclerotic vascular disease. Spondylotic changes of the lumbar spine. Few sigmoid diverticula without diverticulitis. Appendix not actively seen but no signs of appendicitis. Patient was admitted to the cardiac stepdown unit and consult requested with general surgeon. Abdominal ultrasound revealed a limited exam. Borderline distended gallbladder and faint internal echoes likely representing sludge. No abnormal wall thickening or shadowing calculi. No evidence of acute cholecystitis. No biliary ductal rotation. Pancreas could not be visualized. Repeat amylase 1614, repeat lipase 5721. 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 His syncope and presyncope are much better no sign of bradycardia patient is doing well with no further nausea vomiting his volume is better not depleted anymore at this point. Patient still not feeling that well he might be going to rehab 05/11 patient is doing very well significant improvement in the last 24 hours no further arrhythmia lightheadedness dizziness no orthostatic change patient has done very well with physical therapy and between him and his he feels good enough to go home does 1 a go to rehab at this point will be transferring patient home today to follow up in the office in the next few days and to follow-up with cardiology in 2 weeks. Review of Systems Constitutional: Reports fatigue, Denies anorexia, Denies chills, Denies fever, Denies lethargy, Denies malaise, Denies poor appetite Eyes: denies blurred vision, denies pain Ears, nose, mouth and throat: Reports vertigo, Denies dysphagia, Denies nasal congestion, Denies nasal discharge Cardiovascular: Reports lightheadedness, Reports syncope, Denies decreased exercise tolerance, Denies dyspnea on exertion, Denies shortness of breath Respiratory: Denies cough, Denies cough with sputum, Denies dyspnea, Denies excessive sputum, Denies hemoptysis, Denies home oxygen, Denies respiratory infections, Denies wheezing Gastrointestinal: Reports abdominal pain, Reports nausea, Denies diarrhea, Denies vomiting Genitourinary: Denies dysuria, Denies urinary retention Musculoskeletal: Reports muscle weakness, Denies frequent falls, Denies gait dysfunction, Denies myalgias Integumentary: Reports wounds, Denies pruritus, Denies rash Neurological: Denies change in mentation, Denies change in speech, Denies numbness, Denies seizures, Denies weakness Psychiatric: Denies anxiety, Denies depression Endocrine: Denies fatigue, Denies weight change - Exam Gen: This is an 83-year-old male. Patient is in bed and appears to be comfortable and in no acute distress. Patient's is at bedside. HEENT: Head is atraumatic, normocephalic. Pupils equal, round. Sclerae is anicteric. NECK: Supple. No JVD. No lymphadenopathy. No thyromegaly. LUNGS: Clear to auscultation. No wheezes or rhonchi. No intercostal retractions. HEART: Regular rate and rhythm. No murmur. ABDOMEN: Soft. Bowel sounds are present. No masses. Right upper quadrant tenderness. EXTREMITIES: No pedal edema. No calf tenderness. NEUROLOGICAL: Patient is awake, alert and oriented x3. Cranial nerves 2 through 12 are grossly intact. Assessment and Plan Plan: 1. Acute pancreatitis. Continue IV fluids at 100 MLS per hour, diet advanced to clear liquids. Continue IV fluids, Dilaudid for pain, Zofran for nausea. Ultrasound as above. General surgery consult. HIDA scan ordered for tomorrow morning 2. Syncopal episode most likely secondary to orthostatic changes and dehydration. Patient may need event monitor. Cardiology feels no need for any further cardiac testing except as an outpatient longer term heart monitor can be done. 3. Facial and hand laceration status post suturing done in the emergency center. Tetanus status updated. Continue local wound care. 4. History of pulmonary embolism. Continue eliquis 5 mg twice daily. 5. Hyperlipidemia. Atorvastatin on hold. 6. Hyperlipidemia. Continue levothyroxine 75 g daily. 7. Glaucoma. Continue eyedrops. 8 gallbladder dyskinesia: Talk with patient and his in detail patient will be rest for the next 4-6 weeks before having his gallbladder out as an outpatient. Significant improvement will discharge patient home to follow up in the office in next few days. Patient Condition at Discharge: Serious Plan - Discharge Summary Discharge Rx Participant: No New Discharge Prescriptions: New Pantoprazole [Protonix] 40 mg PO DAILY #30 tablet.dr Continue Ascorbic Acid [Vitamin C] 500 mg PO DAILY Glucosamine/Chondr Hoover A Sod [Osteo Bi-Flex Caplet] 2 tab PO DAILY Calcium Carbonate/Vitamin D3 [Calcium 600-Vit D3 400 Tablet] 2 tab PO DAILY Levothyroxine Sodium [Synthroid] 75 mcg PO DAILY Atorvastatin [Lipitor] 40 mg PO HS Vitamin B Complex 1 cap PO DAILY Krill Oil 500 mg PO DAILY Apixaban [Eliquis] 5 mg PO BID Timolol [Betimol 0.5% Ophth Soln] 1 drop BOTH EYES BID Dorzolamide 2% [Trusopt 2%] 1 drops BOTH EYES BID Vit A/Vit C/Vit E/Zinc/Copper [Vision Formula Softgel] 1 cap PO DAILY Latanoprost [Xalatan 0.005%] 1 drop BOTH EYES HS Discharge Medication List Ascorbic Acid [Vitamin C] 500 mg PO DAILY 12/20/14 [History] Atorvastatin [Lipitor] 40 mg PO HS 12/20/14 [History] Calcium Carbonate/Vitamin D3 [Calcium 600-Vit D3 400 Tablet] 2 tab PO DAILY 12/20/14 [History] Glucosamine/Chondr Hoover A Sod [Osteo Bi-Flex Caplet] 2 tab PO DAILY 12/20/14 [History] Levothyroxine Sodium [Synthroid] 75 mcg PO DAILY 12/20/14 [History] Apixaban [Eliquis] 5 mg PO BID 05/07/19 [History] Dorzolamide 2% [Trusopt 2%] 1 drops BOTH EYES BID 05/07/19 [History] Krill Oil 500 mg PO DAILY 05/07/19 [History] Latanoprost [Xalatan 0.005%] 1 drop BOTH EYES HS 05/07/19 [History] Timolol [Betimol 0.5% Ophth Soln] 1 drop BOTH EYES BID 05/07/19 [History] Vit A/Vit C/Vit E/Zinc/Copper [Vision Formula Softgel] 1 cap PO DAILY 05/07/19 [History] Vitamin B Complex 1 cap PO DAILY 05/07/19 [History] Pantoprazole [Protonix] 40 mg PO DAILY #30 tablet. 05/11/19 [Rx] Follow up Appointment(s)/Referral(s): Joslyn Reddy MD [STAFF PHYSICIAN] - 05/25/19 4:00 pm (At [facility]) Gio Jj MD [Primary Care Provider] - 1-2 days (May 15 at 11:00 am ) [facility], [NON-STAFF] - Isaac Garcia MD [STAFF PHYSICIAN] - 1 Week (May 17 at 4:15 pm) Patient Instructions/Handouts: Pancreatitis (DC), Syncope (DC) Discharge Disposition: HOME WITH HOME HEALTH SERVICES
--- NOTE | 2019-05-11 18:18 | PN ---
PROGRESS NOTE DATE OF DICTATION: 05/11/2019 Patient is an 83-year-old pleasant white male admitted to the hospital with acute pancreatitis. The patient is doing much better today. Abdominal symptoms have completely resolved. Low-fat diet; tolerating well. He wants to go home. PHYSICAL EXAMINATION: He appears comfortable. No apparent distress. VITAL SIGNS: Stable. Blood pressure is 139/86, pulse rate 66 per minute and afebrile. HEENT examination unremarkable. Conjunctivae pink. Sclerae anicteric. Oral cavity no lesions. NECK: No JVD or lymph node enlargement. CHEST: Clear to auscultation. HEART: Regular rate and rhythm. ABDOMEN: Soft. Bowel sounds are positive. No organomegaly. EXTREMITIES: No pedal edema. SKIN: No rashes. NEUROLOGIC: He is alert and oriented x3. No focal deficits. LABS: Labs from today show WBC 10.3, hemoglobin 11.2, platelets 124. Amylase and lipase are 51 and 24, respectively. Fasting triglycerides are 73 and JEREMIAH is negative. IMPRESSION: Acute pancreatitis, first episode; unclear etiology. No evidence of alcohol use. Ultrasound did not show any gallstones. His fasting triglycerides are normal and JEREMIAH is negative. Patient clinically doing well. Symptoms completely resolved. Tolerating diet well. RECOMMENDATIONS: 1. Agree for discharge home today. 2. Continue with low-fat diet for 2 more weeks. 3. He was advised to follow up in the office in 3 weeks following discharge from the hospital. Thank you for this consultation. MMODL / IJN: [id number] /
--- NOTE | 2019-05-28 13:07 | EM ---
EVENT MONITOR Patient was monitored between the and May. Rhythm strip revealed a sinus mechanism with single PVCs. There was no pauses nor atrial fibrillation. No episode of ventricular tachycardia were noted. RIVERA / MONAN: [id number] /
== END 2019-05-11 15:32 | disposition home health service (06) | DRG 440 ==
LOC: EC 21:50 → 3SCARD 05-08 01:15
PROVIDERS: ADMIT Internal Medicine Geriatric Medicine; ATTEND Internal Medicine Geriatric Medicine
PROC: 0HQ1XZZ Repair Face Skin, External Approach (ICD-10-PCS; principal; 2019-05-08)
PROC: 0HQGXZZ Repair Left Hand Skin, External Approach (ICD-10-PCS; 2019-05-08)
DX: K85.90 Acute pancreatitis without necrosis or infection, unspecified (principal); E03.9 Hypothyroidism, unspecified; E78.5 Hyperlipidemia, unspecified; E86.0 Dehydration; E86.1 Hypovolemia; H40.9 Unspecified glaucoma; H91.90 Unspecified hearing loss, unspecified ear; I11.9 Hypertensive heart disease without heart failure; I44.0 Atrioventricular block, first degree; I48.91 Unspecified atrial fibrillation; I95.1 Orthostatic hypotension; S01.511A Laceration without foreign body of lip, initial encounter; S61.419A Laceration without foreign body of unspecified hand, initial encounter; W19.XXXA Unspecified fall, initial encounter; Z79.01 Long term (current) use of anticoagulants; Z79.890 Hormone replacement therapy; Z79.899 Other long term (current) drug therapy; Z85.46 Personal history of malignant neoplasm of prostate; Z86.711 Personal history of pulmonary embolism; Z87.891 Personal history of nicotine dependence; R40.2362 Coma scale, best motor response, obeys commands, at arrival to emergency department; R40.2142 Coma scale, eyes open, spontaneous, at arrival to emergency department; R40.2252 Coma scale, best verbal response, oriented, at arrival to emergency department; K80.20 Calculus of gallbladder without cholecystitis without obstruction
CPT/HCPCS: 12002; 12011; 36415; 70450; 71045; 72125; 72170; 74177; 76705; 78227; 80053; 80061; 80306; 80320; 81003; 82150; 82550; 82553; 83605; 83690; 83735; 84484; 85025; 85610; 85730; 86038; 86850; 86900; 86901; 90471; 90715; 93005; 93270; 93306; 96361; 96374; 96375; 96376; 99285

== ENCOUNTER 2019-06-21 06:11 | Day surgery (SDC) | payer MEDICARE, BC ==
[2019-06-19 11:51] VITALS: BMI 27.1
[~2019-06-21 06:11] MED LIST changes: +HYDROmorphone 0.5 MG/0.5 ML SYRINGE IVP PRN; -HYDROmorphone 1 MG/ML 1 ML SYRINGE IVP PRN; +MIDAZOLAM 2 MG/2 ML VIAL IV PRN; -ceFAZolin 2 GM in SODIUM CHLORIDE 0.9% 100 ML IVPB ONE
[2019-06-21] MEDS ORDERED: LIDOCAINE 1% 20 ML VIAL (10MG/ML) FOR IV START INTRADERMA ONE (06:57)
[2019-06-21 06:58] VITALS: RESP 16
[2019-06-21] MEDS ORDERED: KETOROLAC 30 MG/ML 1 ML VIAL ONE (07:58)
[2019-06-21] MEDS ORDERED: fentaNYL (PF) 50 MCG/ML 2 ML AMP ONE (07:58)
[2019-06-21] MEDS ORDERED: NEOSTIGMINE 1 MG/ML 10 ML VIAL ONE (07:58)
[2019-06-21] MEDS ORDERED: ePHEDrine SULFATE/0.9% NACL/PF 50 MG/5 ML SYRINGE IV ONE (07:58)
[2019-06-21] MEDS ORDERED: LIDOCAINE 1% INJ 10MG/ML (20 ML MDV) ONE (07:58)
[2019-06-21] MEDS ORDERED: ROCURONIUM BROMIDE 10 MG/ML 10 ML VIAL IV ONE (07:58)
[2019-06-21] MEDS ORDERED: PROPOFOL 10 MG/ML 20 ML VIAL IV ONE (07:58)
--- NOTE | 2019-06-21 08:00 | P.GSHP ---
History of Present Illness H&P Date: 06/21/19 Chief Complaint: Cholecystitis This is a 3-year-old male with history of right quadrant pain. Patient was worked up found have evidence of chronic cholecystitis on HIDA scan. Patient presents today for laparoscopic cholecystectomy Past Medical History Past Medical History: Cancer, Eye Disorder, Hearing Disorder / Deafness, Hyperlipidemia, Prostate Disorder, Pulmonary Embolus (PE), Syncope, Thyroid Disorder Additional Past Medical History / Comment(s): hx of pancreatitis, hospitalized 05/07/19-05/11, had episode of syncope had stitches to chin, followed up with cardiology, no issues, GLAUCOMA, PROSTATE CANCER x2, had radiation approx 2009 History of Any Multi-Drug Resistant Organisms: None Reported Past Surgical History: Hernia Repair, Orthopedic Surgery, Tonsillectomy Additional Past Surgical History / Comment(s): CYSTOSCOPY, LEFT WRIST, gogo cataracts Past Anesthesia/Blood Transfusion Reactions: No Reported Reaction Smoking Status: Former smoker - Past Family History Father Additional Family Medical History / Comment(s): Father at age 89 from pneumonia. Sister(s) Additional Family Medical History / Comment(s): Patient has 2 sisters that have passed and 1 from unknown cause, second one from alcohol abuse. Patient does not have any brothers. Patient has 2 children with no major medical problems. Mother Family Medical History: No Reported History Additional Family Medical History / Comment(s): Mother at age 69 from hernia, and location. Medications and Allergies Home Medications Medication Instructions Recorded Confirmed Type Ascorbic Acid [Vitamin C] 500 mg PO DAILY 12/20/14 06/21/19 History Atorvastatin [Lipitor] 40 mg PO HS 12/20/14 06/21/19 History Calcium Carbonate/Vitamin D3 2 tab PO DAILY 12/20/14 06/21/19 History [Calcium 600-Vit D3 400 Tablet] Glucosamine/Chondr Hoover A Sod [Osteo 2 tab PO DAILY 12/20/14 06/21/19 History Bi-Flex Caplet] Levothyroxine Sodium [Synthroid] 75 mcg PO DAILY 12/20/14 06/21/19 History Apixaban [Eliquis] 5 mg PO BID 05/07/19 06/21/19 History Dorzolamide 2% [Trusopt 2%] 1 drops BOTH EYES BID 05/07/19 06/21/19 History Krill Oil 500 mg PO DAILY 05/07/19 06/21/19 History Latanoprost [Xalatan 0.005%] 1 drop BOTH EYES HS 05/07/19 06/21/19 History Vit A/Vit C/Vit E/Zinc/Copper 1 cap PO DAILY 05/07/19 06/21/19 History [Vision Formula Softgel] Vitamin B Complex 1 cap PO DAILY 05/07/19 06/21/19 History Pantoprazole [Protonix] 40 mg PO DAILY #30 tablet. 05/11/19 06/21/19 Rx Timolol 0.25% Ophth Soln [Timoptic 1 drop BOTH EYES DAILY 06/19/19 06/21/19 History 0.25% Ophth Soln] Allergies Allergy/AdvReac Type Severity Reaction Status Date / Time No Known Allergies Allergy Verified 06/21/19 06:47 Surgical - Exam Vital Signs Temp Pulse Resp BP Pulse Ox 97.1 F L 58 L 16 109/53 98 06/21/19 06:56 06/21/19 06:56 06/21/19 06:56 06/21/19 06:56 06/21/19 06:56 - General well developed, well nourished, no distress - Eyes PERRL - ENT normal pinna - Neck no masses - Respiratory normal expansion - Cardiovascular Rhythm: regular - Abdomen Abdomen: soft, non tender Results - Labs 06/21/19 07:05 Diabetes panel 06/21/19 Range/Units 07:05 Potassium 4.4 (3.5-5.1) mmol/L Pituitary panel 06/21/19 Range/Units 07:05 Potassium 4.4 (3.5-5.1) mmol/L Adrenal panel 06/21/19 Range/Units 07:05 Potassium 4.4 (3.5-5.1) mmol/L Assessment and Plan Assessment: Chronic cholecystitis. We'll perform laparoscopic cholecystectomy
[2019-06-21] MEDS ORDERED: BUPIVACAINE (PF) 0.25% 30 ML VIAL SQ ONE ×2 (08:23→08:25)
--- NOTE | 2019-06-21 08:51 | P.OP ---
Date of Procedure: 06/21/19 Preoperative Diagnosis: Cholecystitis Postoperative Diagnosis: cholecystitis Procedure(s) Performed: Laparoscopic cholecystectomy Anesthesia: HITESH Surgeon: Isaac Garcia Estimated Blood Loss (ml): 5 Pathology: other (gb) Condition: stable Disposition: PACU Description of Procedure: The patient was placed on the operating table. The patient received a general endotracheal tube anesthesia. The patients abdomen was prepped and draped in the usual sterile fashion. Through an infraumbilical stab incision, the fascia of the anterior abdominal wall was grasped with a pair of Kochers and then the Veress needle was placed in the peritoneal cavity. Position of the Veress needle was confirmed with positive drop test. The abdomen was then insufflated. After adequate insufflation, the 10 mm trocar was placed in the peritoneal cavity. Following this the laparoscope was placed in the peritoneal cavity. The patient was placed in the head-up, right side up position and then a 5 mm trocar was placed in the right lateral and right subcostal position under direct visualization. A 8 mm trocar was placed in the epigastric position. The gallbladder was grasped in the fundus and infundibulum. Traction on the gallbladder was placed in the lateral and the cephalad positions. The triangle of Calot was visualized.. The cystic duct was bluntly dissected until the union of the cystic duct and common bile duct was seen. A critical view of safety was achieved. The cystic duct was then divided and sealed with the Harmonic scissors. A PDS Endoloop was then placed throughout the cystic duct stump. The cystic artery divided and sealed with the Harmonic scissors. The gallbladder was then removed from the liver bed using Harmonic scissors. The gallbladder was then extracted through the epigastric port site. Operative field was checked for any bleeding spots and Harmonic scissors was used to coagulate the liver bed. The abdomen was irrigated. The trocars were removed. The skin was closed using interrupted 3-0 Vicryl suture. Dermabond dressing were applied. The patient tolerated the procedure well.
[2019-06-21 08:53] VITALS: TEMP 97
[2019-06-21] MEDS ORDERED: ACETAMINOPHEN TAB 500 MG TAB PO ONE (10:17)
[2019-06-21 10:43] VITALS: BP 126/60; PULSE 60
== END 2019-06-21 11:30 | disposition home or self-care (01) ==
LOC: OR 06:11
PROVIDERS: ATTEND Surgery
DX: K81.1 Chronic cholecystitis (principal); E78.5 Hyperlipidemia, unspecified; Z86.711 Personal history of pulmonary embolism; E07.9 Disorder of thyroid, unspecified; H91.90 Unspecified hearing loss, unspecified ear; H40.9 Unspecified glaucoma; Z85.46 Personal history of malignant neoplasm of prostate; Z87.19 Personal history of other diseases of the digestive system; Z90.89 Acquired absence of other organs; Z98.890 Other specified postprocedural states; Z87.891 Personal history of nicotine dependence; Z92.3 Personal history of irradiation; Z79.890 Hormone replacement therapy; Z79.01 Long term (current) use of anticoagulants; Z79.899 Other long term (current) drug therapy
CPT/HCPCS: 88304; 84132; 47562; J1100; J2710; J0690; J2405; J2001; J3010; J1885; J2704

== ENCOUNTER 2019-07-08 06:06 | Emergency (ER) | payer MEDICARE, BC ==
[2019-07-08 06:21] VITALS: BP 111/64; PULSE 60; RESP 18; TEMP 97.8
--- NOTE | 2019-07-08 06:41 | ED ---
ENT HPI - General Chief complaint: ENT Stated complaint: URI Time Seen by Provider: 07/08/19 06:24 Source: patient, RN notes reviewed, old records reviewed Mode of arrival: ambulatory Limitations: no limitations - History of Present Illness Initial comments: Patient's 83-year-old male who presents emergency department today with his . Patient and patient's and upper a story symptoms. Patient reports that he had one day of runny nose, and sinus drainage. He denies any cough or significant sore throat. - Related Data Home Medications Medication Instructions Recorded Confirmed Ascorbic Acid [Vitamin C] 500 mg PO DAILY 12/20/14 06/21/19 Atorvastatin [Lipitor] 40 mg PO HS 12/20/14 06/21/19 Calcium Carbonate/Vitamin D3 2 tab PO DAILY 12/20/14 06/21/19 [Calcium 600-Vit D3 400 Tablet] Glucosamine/Chondr Hoover A Sod [Osteo 2 tab PO DAILY 12/20/14 06/21/19 Bi-Flex Caplet] Levothyroxine Sodium [Synthroid] 75 mcg PO DAILY 12/20/14 06/21/19 Apixaban [Eliquis] 5 mg PO BID 05/07/19 06/21/19 Dorzolamide 2% [Trusopt 2%] 1 drops BOTH EYES BID 05/07/19 06/21/19 Krill Oil 500 mg PO DAILY 05/07/19 06/21/19 Latanoprost [Xalatan 0.005%] 1 drop BOTH EYES HS 05/07/19 06/21/19 Vit A/Vit C/Vit E/Zinc/Copper 1 cap PO DAILY 05/07/19 06/21/19 [Vision Formula Softgel] Vitamin B Complex 1 cap PO DAILY 05/07/19 06/21/19 Timolol 0.25% Ophth Soln [Timoptic 1 drop BOTH EYES DAILY 06/19/19 06/21/19 0.25% Ophth Soln] Previous Rx's Medication Instructions Recorded Pantoprazole [Protonix] 40 mg PO DAILY #30 tablet. 05/11/19 Docusate [Colace] 100 mg PO BID #20 capsule 06/21/19 HYDROcodone/APAP 5-325MG [[place] 1 tab PO Q6HR PRN #10 tab 06/21/19 5-325] Fluticasone Propionate [Flonase 1 spray EA NOSTRIL BID #1 bottle 07/08/19 Allergy Relief] Allergies Allergy/AdvReac Type Severity Reaction Status Date / Time No Known Allergies Allergy Verified 07/08/19 06:21 Review of Systems ROS Statement: Those systems with pertinent positive or pertinent negative responses have been documented in the HPI. ROS Other: All systems not noted in ROS Statement are negative. Past Medical History Past Medical History: Cancer, Eye Disorder, Hearing Disorder / Deafness, Hyperlipidemia, Prostate Disorder, Pulmonary Embolus (PE), Syncope, Thyroid Disorder Additional Past Medical History / Comment(s): hx of pancreatitis, hospitalized 05/07/19-05/11, had episode of syncope had stitches to chin, followed up with cardiology, no issues, GLAUCOMA, PROSTATE CANCER x2, had radiation approx 2009 History of Any Multi-Drug Resistant Organisms: None Reported Past Surgical History: Cholecystectomy, Hernia Repair, Orthopedic Surgery, Tons illectomy Additional Past Surgical History / Comment(s): CYSTOSCOPY, LEFT WRIST, gogo cataracts Past Anesthesia/Blood Transfusion Reactions: No Reported Reaction Past Psychological History: No Psychological Hx Reported Smoking Status: Former smoker Past Alcohol Use History: Rare Past Drug Use History: None Reported - Past Family History Father Additional Family Medical History / Comment(s): Father at age 89 from pneumonia. Sister(s) Additional Family Medical History / Comment(s): Patient has 2 sisters that have passed and 1 from unknown cause, second one from alcohol abuse. Patient does not have any brothers. Patient has 2 children with no major medical problems. Mother Family Medical History: No Reported History Additional Family Medical History / Comment(s): Mother at age 69 from hernia, and location. General Exam - General Exam Comments Initial Comments: 83 -year-old male. No acute distress. Limitations: no limitations General appearance: alert, in no apparent distress Head exam: Present: atraumatic, normocephalic, normal inspection Eye exam: Present: normal appearance, PERRL, EOMI. Absent: scleral icterus, conjunctival injection, periorbital swelling ENT exam: Present: normal exam, mucous membranes moist Neck exam: Present: normal inspection. Absent: tenderness, meningismus, lymphadenopathy Respiratory exam: Present: normal lung sounds bilaterally. Absent: respiratory distress, wheezes, rales, rhonchi, stridor Cardiovascular Exam: Present: regular rate, normal rhythm, normal heart sounds. Absent: systolic murmur, diastolic murmur, rubs, gallop, clicks GI/Abdominal exam: Present: soft, normal bowel sounds. Absent: distended, tenderness, guarding, rebound, rigid Extremities exam: Present: normal inspection, full ROM, normal capillary refill. Absent: tenderness, pedal edema, joint swelling, calf tenderness Back exam: Present: normal inspection Neurological exam: Present: alert, oriented X3, CN II-XII intact Psychiatric exam: Present: normal affect, normal mood Skin exam: Present: warm, dry, intact, normal color. Absent: rash Course Vital Signs 07/08/19 06:18 Temperature 97.8 F Pulse Rate 60 Respiratory 18 Rate Blood Pressure 111/64 O2 Sat by Pulse 99 Oximetry Medical Decision Making - Medical Decision Making [id number] female presents today for evaluation for concern for many nose times one day. He is here with his with sore throat and congestion for 3 days. Patient is negative for influenza. No fever. He appears in no distress. This likely common cold. Discussed the Patient needs follow-up with PCP. Questions answered. We'll discharge Patient on flonase. - Lab Data Lab Results 07/08/19 Range/Units 06:30 Influenza Type A RNA Not Detected (Not Detectd) Influenza Type B (PCR) Not Detected (Not Detectd) Disposition Clinical Impression: URI (upper respiratory infection) Disposition: HOME SELF-CARE Condition: Good Instructions (If sedation given, give patient instructions): Cold Symptoms (ED) Additional Instructions: Please use medication as discussed, recommended using nasal sprays and Motrin Tylenol for pain. Also use decongestant medication such as Corecidin HBP. P jan follow up with family doctor if symptoms have not improved over the next two days. Please return to the emergency room if your symptoms increase or worsen or for any other concerns. Prescriptions: Fluticasone Propionate [Flonase Allergy Relief] 1 spray EA NOSTRIL BID #1 bottle Is patient prescribed a controlled substance at d/c from ED?: No Referrals: Gio Jj MD [Primary Care Provider] - 1-2 days Time of Disposition: 07:19
== END 2019-07-08 07:36 | disposition home or self-care (01) ==
LOC: EC 06:06
DX: J06.9 Acute upper respiratory infection, unspecified (principal); H40.9 Unspecified glaucoma; H91.90 Unspecified hearing loss, unspecified ear; E78.5 Hyperlipidemia, unspecified; E07.9 Disorder of thyroid, unspecified; Z87.891 Personal history of nicotine dependence; Z79.01 Long term (current) use of anticoagulants; Z79.890 Hormone replacement therapy; Z79.899 Other long term (current) drug therapy; Z85.46 Personal history of malignant neoplasm of prostate; Z92.3 Personal history of irradiation; Z86.711 Personal history of pulmonary embolism; Z83.6 Family history of other diseases of the respiratory system
CPT/HCPCS: 87502; 99284

== ENCOUNTER 2020-04-19 09:13 | Emergency (ER) | payer MEDICARE, BC ==
[2020-04-19 09:23] VITALS: BP 103/63; PULSE 55; RESP 18; TEMP 97.4
--- NOTE | 2020-04-19 09:34 | ED ---
General Adult HPI - General Chief complaint: ENT Stated complaint: Cough Time Seen by Provider: 04/19/20 09:20 Source: patient, RN notes reviewed, old records reviewed Mode of arrival: ambulatory Limitations: no limitations - History of Present Illness Initial comments: This is an 84-year-old male who presents emergency Department complaining that he is exposed to cold with 19 from someone at discharge. Patient states his tells him he has an occasional cough. Patient also states she is a little bit of a runny nose. Patient denies any pain patient denies any fever chills patient denies any shortness of breath or difficulty breathing. Patient denies any sputum production. Patient states she's basically fine he just wants a COVID test. He also denies any abdominal pain denies any nausea vomiting diarrhea. Patient denies any loss of taste. - Related Data Home Medications Medication Instructions Recorded Confirmed Ascorbic Acid [Vitamin C] 500 mg PO DAILY 12/20/14 06/21/19 Atorvastatin [Lipitor] 40 mg PO HS 12/20/14 06/21/19 Calcium Carbonate/Vitamin D3 2 tab PO DAILY 12/20/14 06/21/19 [Calcium 600-Vit D3 400 Tablet] Glucosamine/Ch[place]r [place] A Sod [Osteo 2 tab PO DAILY 12/20/14 06/21/19 Bi-Flex Caplet] Levothyroxine Sodium [Synthroid] 75 mcg PO DAILY 12/20/14 06/21/19 Apixaban [Eliquis] 5 mg PO BID 05/07/19 06/21/19 Dorzolamide 2% [Trusopt 2%] 1 drops BOTH EYES BID 05/07/19 06/21/19 Krill Oil 500 mg PO DAILY 05/07/19 06/21/19 Latanoprost [Xalatan 0.005%] 1 drop BOTH EYES HS 05/07/19 06/21/19 Vit A/Vit C/Vit E/Zinc/Copper 1 cap PO DAILY 05/07/19 06/21/19 [Vision Formula Softgel] Vitamin B Complex 1 cap PO DAILY 05/07/19 06/21/19 Timolol 0.25% Ophth Soln [Timoptic 1 drop BOTH EYES DAILY 06/19/19 06/21/19 0.25% Ophth Soln] Previous Rx's Medication Instructions Recorded Pantoprazole [Protonix] 40 mg PO DAILY #30 tablet. 05/11/19 Docusate [Colace] 100 mg PO BID #20 capsule 06/21/19 HYDROcodone/APAP 5-325MG [[place] 1 tab PO Q6HR PRN #10 tab 06/21/19 5-325] Fluticasone Propionate [Flonase 1 spray EA NOSTRIL BID #1 bottle 07/08/19 Allergy Relief] Allergies Allergy/AdvReac Type Severity Reaction Status Date / Time No Known Allergies Allergy Verified 04/19/20 09:23 Review of Systems ROS Statement: Those systems with pertinent positive or pertinent negative responses have been documented in the HPI. ROS Other: All systems not noted in ROS Statement are negative. Past Medical History Past Medical History: Cancer, Eye Disorder, Hearing Disorder / Deafness, Hyperlipidemia, Prostate Disorder, Pulmonary Embolus (PE), Syncope, Thyroid Disorder Additional Past Medical History / Comment(s): hx of pancreatitis, hospitalized 05/07/19-05/11, had episode of syncope had stitches to chin, followed up with cardiology, no issues, GLAUCOMA, PROSTATE CANCER x2, had radiation approx 2009 History of Any Multi-Drug Resistant Organisms: None Reported Past Surgical History: Cholecystectomy, Hernia Repair, Orthopedic Surgery, Tonsillectomy Additional Past Surgical History / Comment(s): CYSTOSCOPY, LEFT WRIST, gogo cataracts Past Anesthesia/Blood Transfusion Reactions: No Reported Reaction Past Psychological History: No Psychological Hx Reported Smoking Status: Never smoker Past Alcohol Use History: Rare Past Drug Use History: None Reported - Past Family History Father Additional Family Medical History / Comment(s): Father at age 89 from pneumonia. Sister(s) Additional Family Medical History / Comment(s): Patient has 2 sisters that have passed and 1 from unknown cause, second one from alcohol abuse. Patient does not have any brothers. Patient has 2 children with no major medical problems. Mother Family Medical History: No Reported History Additional Family Medical History / Comment(s): Mother at age 69 from hernia, and location. General Exam - General Exam Comments Initial Comments: GENERAL: Patient is well-developed and well-nourished. Patient is nontoxic and well- hydrated and is in no acute distress. ENT: Neck is soft and supple. No significant lymphadenopathy is noted. Oropharynx is clear. Moist mucous membranes. Neck has full range of motion without eliciting any pain. EYES: The sclera were anicteric and conjunctiva were pink and moist. Extraocular movements were intact and pupils were equal round and reactive to light. Eyelids were unremarkable. PULMONARY: Unlabored respirations. Good breath sounds bilaterally. No audible rales rhonchi or wheezing was noted. CARDIOVASCULAR: There is a regular rate and rhythm without any murmurs gallops or rubs. ABDOMEN: Soft and nontender with normal bowel sounds. SKIN: Skin is clear with no lesions or rashes and otherwise unremarkable. NEUROLOGIC: Patient is alert and oriented x3. Cranial nerves II through XII are grossly intact. Motor and sensory are also intact. Normal speech, volume and content. Symmetrical smile. MUSCULOSKELETAL: Normal extremities with adequate strength and full range of motion. LYMPHATICS: No significant lymphadenopathy is noted PSYCHIATRIC: Normal psychiatric evaluation. Limitations: no limitations Course Vital Signs 04/19/20 09:20 Temperature 97.4 F L Pulse Rate 55 L Respiratory 18 Rate Blood Pressure 103/63 O2 Sat by Pulse 99 Oximetry Disposition Clinical Impression: Upper respiratory infection Disposition: HOME SELF-CARE Condition: Good Instructions (If sedation given, give patient instructions): Upper Respiratory Infection (ED) Additional Instructions: Patient is to return to the emergency department with any difficulty breathing or any new symptoms. Is patient prescribed a controlled substance at d/c from ED?: No Referrals: Gio Jj MD [Primary Care Provider] - 1-2 days Time of Disposition: 09:35
== END 2020-04-19 10:03 | disposition home or self-care (01) ==
LOC: EC 09:13
DX: J06.9 Acute upper respiratory infection, unspecified (principal); E78.5 Hyperlipidemia, unspecified; E07.9 Disorder of thyroid, unspecified; H40.9 Unspecified glaucoma; Z79.01 Long term (current) use of anticoagulants; Z79.890 Hormone replacement therapy; Z79.899 Other long term (current) drug therapy; Z86.718 Personal history of other venous thrombosis and embolism; Z85.46 Personal history of malignant neoplasm of prostate; Z92.3 Personal history of irradiation; Z87.19 Personal history of other diseases of the digestive system
CPT/HCPCS: 99283; U0003

== ENCOUNTER → 2023-03-16 | Outpatient (CLI) | payer MEDICARE ==
--- NOTE | 2023-03-16 15:32 | XR ---
EXAMINATION TYPE: XR shoulder complete 3 views RT DATE OF EXAM: 03/16/2023 Comparison: None Clinical History: 87-year-old male M25.511 PAIN IN RIGHT SHOULDER Findings: AC joint is intact. There is severe degenerative change at the glenohumeral joint with nearly bone-on -bone articulation and marginal spurring. Bony irregularity at the greater tuberosity. No acute fract ure, subluxation, dislocation. Impression: 1. Severe glenohumeral joint OA. A 9 mm loose body in the subcoracoid recess. 2. Bony changes at the greater tuberosity suggesting chronic rotator cuff tendinopathy.
== END | disposition home or self-care (01) ==
LOC: RADXRMAIN 11:25
PROVIDERS: ATTEND Internal Medicine Geriatric Medicine
DX: M19.011 Primary osteoarthritis, right shoulder (principal); M67.813 Other specified disorders of tendon, right shoulder